=== PATIENT | female | born 1955 | race Caucasian/White ===

== ENCOUNTER 2024-12-17 01:34 | Inpatient (IN) | payer OTHER, SELFPAY ==
[2024-12-16] VITALS (7 sets, daily range): BP systolic 149–166; BP diastolic 100–115; PULSE 2–130; BMI 21.5
--- NOTE | 2024-12-16 21:06 | ED.GENMED ---
History of Present Illness
General
Chief Complaint: Breathing Problem
Time Seen by Provider: 12/16/24 21:03
History of Present Illness
History of Present Illness:
TIME OF INITIAL ENCOUNTER: 9 PM
HPI: I spoke to EMS for history. She arrived on BiPAP in moderate respiratory distress. She reportedly ran out of her blood pressure medication. EMS noted rales and rhonchi and placed her on BiPAP. Her sats were 70% prior to their arrival. She
was given Solu-Medrol 125 mg IV and DuoNebs by EMS with overall some improvement. She does have some vague discomfort described as pressure in the lower/upper abdomen but 'no pain'.
EXAM:
GENERAL: Ill-appearing
HEENT: Moist oral mucosa
CARDIOVASCULAR: No murmurs, normal heart rate, regular rhythm, No chest wall tenderness
PULMONARY: Moderate respiratory distress, breath sounds are fairly clear other than some questionable wheeze/rales more so on the right
ABDOMEN: Soft with no peritoneal signs, no tenderness
NEUROLOGIC: Fair strength all extremities, no coordination deficits
PSYCHIATRIC: Appropriate mental status, normal insight and judgement
EXTREMITIES: Nontender, 1+ bilateral lower extremity edema, moves all extremities equally
SKIN: No rash, no lesions
NUMBER AND COMPLEXITY OF PROBLEMS ADDRESSED AT THE ENCOUNTER
� Chronic conditions affecting care: Ovarian cancer and was admitted with a DVT in 2011
� Acute Exacerbation and/or Progression of Chronic Illness: This is an acute problem
� Differential Diagnosis includes: Heart failure, pulmonary edema, pneumonia, reactive airway disease, bronchitis, COPD, PE
AMOUNT AND/OR COMPLEXITY OF DATA TO BE REVIEWED AND ANALYZED
� I performed an independent evaluation of and my interpretation is:
EKG: Sinus 130, ST elevation in V3 which is new in comparison to 05/11/2012
CT:
X-rays: Chest x-ray suggest pulmonary edema
Laboratory Studies: White count 18.3, hemoglobin 14.0, troponin 0.118, BNP 11,600, sodium 131
Other:
� Review of other/old records: The patient was last here in 2011 related to her ovarian cancer treatment
� Clinical information was obtained by an independent historian: I spoke to boyfriend
� Prescriptions/Medications Considered but not given:
� Further testing considered but not performed: Considered CTA initially however this was held once her symptoms appear to be more cardiac in etiology. Troponin and BNP elevated. Chest x-ray shows pulmonary edema
RISK OF COMPLICATIONS AND/OR MORBIDITY OR MORTALITY OF PATIENT MANAGEMENT
� Social determinants of health affecting care: Lives at home
� Discussion with other providers: Given the abnormality seen on EKG, I notified Dr. Luis. He came in and evaluated the patient at bedside.
� Escalation of care including admission/observation vs risk of discharge considered: Dr. Luis performed a bedside echo, noted poor wall motion and wants to emergently take patient to the [facility]. I ordered heparin and
aspirin. Dr. Luis recommends to hold off on giving Plavix.
ANY OTHER UPDATES:
The patient was continued on BiPAP, nitroglycerin given, Lasix given for pulmonary edema. I evaluated the patient multiple times throughout her stay in the Emergency Department. Overall she has improved on BiPAP. As of 10:37 PM, awaiting
respiratory/transport to the [facility]. Overall she is improved with treatment given.
Past History
Past History
ED Past Medical History: None
Social History
Alcohol: Other (Drinking about 4 months ago)
Personal: Partner
Employment: Employed
Family History
Family History: CAD
Phy Exam
Physical Exam
Physical Exam:
See HPI
Scores
Heart Failure Risk
Heart Failure Risk Score: Not Applicable
Course
Orders/Labs/Results
Orders:
Orders
12/16/24 21:02
Electrocardiogram (*1) Urgent
Reason for Study: Other
Other Reason for Exam: Respiratory Distress
Cardiac Monitoring- Treatment ONCE
EKG- Treatment ONCE
IV Insert/Care/Rem.- Treatment PRN
O2 Therapy [RESP] Urgent
Titrate/Wean O2 to maintain O2 sat greater than (%): 93
Special Instructions: TO MAINTAIN CONTINUOUS O2 SATS >/= 93%
Pulse Ox/cont/shift [RESP] Urgent
Quantity: 1
Special Instructions: continuous pulse ox
12/16/24 21:03
Chest X-ray Portable [CR Chest Portable - 1 View] Stat
Comment:
Reason For Exam: unstable
Reason Study Needs to be Portable: Unable to Transport
12/16/24 21:10
Complete Blood Count/With Diff Urgent
Comprehensive Metabolic Panel Urgent
NT-proBNP Urgent
Troponin I Urgent
12/16/24 21:19
Furosemide [Lasix] 40 mg IV NOW STA
Nitroglycerin Ointment [Nitro-Bid] 1 inch TOPICAL NOW STA
12/16/24 21:57
COVID-19 Antigen Urgent
Source: Nasal Swab
Influenza A+B Rapid Molecular Urgent
MONCHO Source: Nasal Swab
Specimen Description:
12/16/24 22:01
Lorazepam [Ativan] 2 mg .ROUTE .STK-MED ONE
12/16/24 22:04
Lorazepam [Ativan] 0.5 mg IV NOW STA
12/16/24 22:23
Aspirin 325 mg PO NOW STA
Heparin 4,200 units IV NOW STA
Pharmacy Request to Place See Dose Instructions PO NOW STA
Discontinue all Active Warfarin orders?: Yes
12/16/24 22:24
PTT Urgent
Comment: Obtain baseline before beginning heparin infusion if not already collected
Nursing to Place Non Medication Order As Directed
Physician Order: PTT 6 hours after initial start of Heparin infusion
12/16/24 22:30
Heparin 10782 Units/250 ml 25,000 units in 250 ml IV PER PROTOCOL
Weight to be used for heparin protocol in kilograms (kg):: 60.4
Protocol:: Cardiac Tx/Acute Coronary
PTT Goal Range to be used:: PTT 73 to 111 seconds
Order type:: Initial
INITIAL Infusion Dose (UNITS/KG/hr) & then follow protocol:: 15 units/kg/hr
Infusion Dose in UNITS/hr & then follow protocol (UNITS/hr):: 900
INFUSION RATE in mL/hr & then follow protocol (mL/hr):: 9
PTT less than or equal to 64 seconds:: Increase rate by 200 units/hr (+ 2 mL/hr)
PTT 64.1 to 72.9 seconds:: Increase rate by 100 units/hr (+ 1 mL/hr)
PTT 73 to 111 seconds:: Target Range. No change in rate.
PTT 111.1 to 130.9 seconds:: Decrease rate by 100 units/hr (- 1 mL/hr)
PTT 131 to 199.9 seconds:: HOLD for 1 hr. Then decrease rate by 200 units/hr (- 2 mL/hr)
PTT greater than or equal to 200 seconds:: HOLD for 2 hrs & Notify Provider. Then decrease by 200 units/hr (-
2 mL/hr)
Lab follow-up:: Each change, PTT q6h until 2 consecutive are therapeutic. Then PTT
daily.
12/16/24 22:44
Fentanyl Citrate/Pf [Sublimaze] 100 mcg .ROUTE .STK-MED ONE
Midazolam HCl [Versed] 2 mg .ROUTE .STK-MED ONE
12/16/24 22:45
Heparin 10,000 units .ROUTE .STK-MED ONE
12/16/24 23:[address] See Dose Instructions IV DIRECTED
Abnormal Lab Results
12/16/24
21:10
WBC 18.3 H 10^3/uL
(4.8-10.8)
MCH 32.4 H pg
(27.0-31.0)
Abs Immat Gran (auto) 0.1 H 10^3/uL
(0-0.05)
Absolute Neuts (auto) 15.1 H 10^3/uL
(1.4-6.5)
Absolute Monos (auto) 0.7 H 10^3/uL
(0.1-0.6)
Neutrophils % 82.8 H %
(42.2-75.2)
Lymphocytes % 12.2 L %
(20.5-51.1)
Sodium 131 L mmol/L
(135-145)
Carbon Dioxide 16 L mmol/L
(22-30)
Glucose 233 H mg/dl
(70-99)
Troponin I 0.118 H* ng/ml
12/16/24 21:10
12/16/24 21:10
Vital Signs
Initial and Last Documented VS:
Initial Vital Signs
Pulse Ox
88
12/16/24 21:03
Last Documented Vital Signs
Temp Pulse Resp BP Pulse Ox
36.6 C 130 26 155/103 98
12/16/24 21:05 12/16/24 21:41 12/16/24 21:41 12/16/24 21:41 12/16/24 21:41
*Critical Care Note
Total Time (30-74mins, 75-104mins- exclusive of procedures): 60min
comment:
Patient is hypoxic requiring BiPAP. Abnormal EKG, troponin, BNP and she was emergently diuresed. Nitroglycerin paste was also given to help preload reduction.
ED Attending Note
-
Portions of this chart may have been created with voice recognition software.� Occasional wrong word or��sound alike� substitutions may have occurred due to the inherent limitations of voice recognition software.
Discharge Plan
Departure
Patient Disposition: Admit
Date of Disposition: 12/16/24
Time of Disposition: 22:13
Presentation/result/management discussed w/ accepting MD/DO: dr donohue
Discharge Problem:
ACS (acute coronary syndrome)
Prescriptions:
No Action
metoprolol succinate 25 MG tablet extended release 24 hr
25 mg PO DAILY
enoxaparin 60 MG/0.6 ML syringe
60 mg SC Q12H
oxycodone-acetaminophen [Percocet] 1 EACH tablet
1 ea PO Q4HPRN PRN (Reason: Neulasta bone pain)
Interventions
Interventions:
*Risk Screen - Suicide Last Done: 12/16/24 21:20
*General Assessment Last Done: 12/16/24 21:21
*Neglect/Abuse Screening Last Done: 12/16/24 21:20
*ED COVID-19 Vaccine History Last Done: 12/16/24 21:20
ED- Cardiac Assessment Last Done: 12/16/24 21:42
ED- Pulmonary Assessment Last Done: 12/16/24 21:42
Discharge Date and Time
Print Language: TURKISH
[2024-12-16 21:24] LABS: % Basophils 0.3 % (0-2); % Eosinophils 0.3 % (0-6); % Immature Granulocytes 0.4 % (0-0.5); % Lymphocytes 12.2 % (20.5-51.1); % Neutrophils 82.8 % (42.2-75.2); Absolute Basophils 0.1 10^3/uL (0-0.2); Absolute Eosinophils 0.1 10^3/uL (0-0.7); Absolute Immature Granulocytes 0.1 10^3/uL (0-0.05); Absolute Lymphocytes 2.2 10^3/uL (1.2-3.4); Absolute Monocytes 0.7 10^3/uL (0.1-0.6); Absolute Neutrophils 15.1 10^3/uL (1.4-6.5); Hematocrit 41.5 % (37.0-47.0); Mean Corp Hgb Conc. 33.7 g/dL (33.0-37.0); Mean Corpuscular Hgb 32.4 pg (27.0-31.0); Mean Corpuscular Volume 96.1 fL (81.0-99.0); Mean Platelet Volume 9.6 fL (7.4-10.4); Nucleated Red Blood Cells % 0 %; Platelet Count 331 10^3/uL (130-400); Red Blood Cell Count 4.32 10^6/uL (4.20-5.40); Red Cell Dist. Width 13.4 % (11.5-14.5); White Blood Cell Count 18.3 10^3/uL (4.8-10.8)
[2024-12-16] MEDS: NITRO-BID 1 INCH TOPICAL (21:35)
[2024-12-16] MEDS: LASIX 40 MG IV (21:35)
[2024-12-16 21:50] LABS: ALT (SGPT) 17 U/L (0-35); AST (SGOT) 33 U/L (14-36); Albumin 4.5 g/dl (3.5-5.0); Alkaline Phosphatase 102 U/L (38-126); Blood Urea Nitrogen 8 mg/dl (7-17); Calcium 9.3 mg/dl (8.4-10.2); Carbon Dioxide 16 mmol/L (22-30); Chloride 98 mmol/L (98-107); Estimated Creatinine Clearance 55 ml/min; Glucose 233 mg/dl (70-99); Potassium 3.6 mmol/L (3.5-5.1); Sodium 131 mmol/L (135-145); Total Bilirubin 0.8 mg/dl (0.2-1.3); Total Protein 6.6 g/dl (6.3-8.2); eGFR > 60.00
[2024-12-16 21:51] LABS: NT-proBNP 11600 pg/ml; Troponin I 0.118 ng/ml
[2024-12-16] MEDS: ATIVAN 0.5 MG IV (22:05)
[2024-12-16 22:30] LABS: COVID-19 Antigen Negative (Negative)
--- NOTE | 2024-12-16 22:31 | HPS.HSE ---
Family Physician
-
Family Physician: NOT KNOW UNKNOWN - PT DOES
Chief Complaint
-
Shortness in breath.
History of Present Illness
69 y/o female with HTN and remote history of ovarian CA in remission complicated by DVT/PE presenting with abrupt onset shortness in breath and hypoxic respiratory failure.
The patient was in her normal state of health until she had to move her bowels earlier today. After forcing the bowel movement, she describes a sub-xyphiod sensation that she does not qualify as pain. She became progressively short of breath and
presented to [facility] Emergency Room.
On presentation, she was hypertensive. Initial EKG shows isolated SARAN in V3 with Q waves through the anteroseptum. The EKG has a poor baseline, so true SARAN in leads other than V3 are difficult to distinguish. She was dyspneic and hypoxic. She
was placed on BiPAP, given diuretics and a nitro patch was placed. With these interventions, her BP is better controlled and her breathing is more comfortable, though she remains on BiPAP.
CXR shows some pulmonary edema.
WBC is 18.3K.
Troponin is 0.118.
CO2 is 16 (AG = 17).
Glucose 233.
COVID/Influenza negative.
Bedside echo (ER US machine with cardiac probe) shows anteroseptal hypokinesis with a hyperkinetic inferior base and severely depressed systolic function. LVEF estimated at 20-25%.
Medical History
Past Medical History
Past Medical History: Reports Cancer (Ovarian), HTN and Other (DVT/PE (secondary to ovarian CA).)
Past Surgical History: Reports None
Social History
Tobacco: Non-smoker
Alcohol: Daily
Drug: None
Personal: Partner
Living: With Family
Employment: Employed
Family History
Family History: Not pertinent
Allergies / Home Medications
Allergies reflects when Allergies were last updated in Takes.
Home Medications with original date entered in Takes
Allergy/Medication List:
Home Medication:
Blood pressure medicine NOS.
Allergies:
PCN
Paclitaxel
Review of Systems
-
History Source: Patient, Family and Physician
Constitutional: Reports Chills
EENT: Reports No Symptoms
Respiratory: Reports Trouble Breathing
Cardiac: Reports No Symptoms and See HPI
Abdomen/GI: Reports No Symptoms and See HPI
Musculoskeletal: Reports No Symptoms
Skin: Reports No Symptoms
Neurological: Reports No Symptoms
Physical Exam
Vital Signs
Vital Signs
Temp Pulse Resp BP Pulse Ox
36.6 C 130 26 155/103 98
12/16/24 21:05 12/16/24 21:41 12/16/24 21:41 12/16/24 21:41 12/16/24 21:41
Physical Exam
General: Well Developed, Well Nourished, Respiratory Distress and Other (On BiPAP.)
HEENT: NormoCephalic, Anicteric, Moist mucous membranes, Atraumatic, Good Dentition (Missing several teeth.), PERRLA, [place] Conjunctivae, No Ptosis, Nose Appears Normal and Ears Appear Normal
Respiratory: Rales and Accessory Resp Muscle Use
Cardiac: S1/S2 and Regular Rhythm
Breast: Deferred by me
GI: Soft, Non Tender, Non Distended and Normal Bowel Sounds
Rectal: Deferred by Provider
Genito-urinary: Deferred by me
Musculoskeletal: No Clubbing, No Cyanosis and No Edema
Skin: Warm and Dry
Neuro: AO x 3, No Motor Deficits, Nonfocal/grossly intact and Cranial Nerves Intact
Hematologic/Lymphatic: No Lymphadenopathy
Psych: Intact Judgment/Insight and Anxious
Laboratory Results
-
12/16/24 21:10
12/16/24 21:10
Laboratory Results
Total Bilirubin 0.8 mg/dl (0.2-1.3) 12/16/24 21:10
AST 33 U/L (14-36) 12/16/24 21:10
ALT 17 U/L (0-35) 12/16/24 21:10
Alkaline Phosphatase 102 U/L (38-126) 12/16/24 21:10
Troponin I 0.118 ng/ml H* 12/16/24 21:10
Data Reviewed
-
Diagnostic Radiology: Image Personally Visualized and interpreted and Report Reviewed by me
Ultrasound: Image Personally Visualized and interpreted
Medical Tests (Nuc Med, Echo, EKG etc): Image Personally Visualized and interpreted and Report Reviewed by me
Lab Data: Labs Reviewed by me
Old Records: Reviewed
Impression/Plan
-
Impression/Plan: 69 y/o female with a history of HTN, remote ovarian CA in remission that was complicated by DVT/PE presenting with acute hypoxic respiratory failure, new cardiomyopathy/acute HFrEF and EKG change concerning for acute coronary
syndrome and anion gapped metabolic acidosis.
#ACS
-Acute.
-EKG without definitive SARAN beyond V3 and Q waves in the anteroseptum. DDx includes true STEMI vs. delayed presentation vs. Takotsubo vs. myocarditis.
-Urgent cardiac catheterization to clarify coronary anatomy, assess filling pressures.
-Risks/benefits discussed.
-Consent is signed and on the chart.
-ASA/Heparin have been given. [id number] held prior to evaluation of anatomy.
#Hypoxic respiratory failure/HFrEF
-Acute, new diagnosis.
-Furosemide 40 mg IV given in ER.
-Place griffiths catheter.
-We will assess LVEDP at the time of catheterization.
-DDx will also include abrupt mechanical complication (VSD/MR, etc).
-She may need a bumetanide gtt.
#Anion Gapped Metabolic Acidosis
-Acute.
-AG = 17, Delta/Delta around 1.
-Check lactate, beta-hydroxybutyrate (in light of glucose > 200).
-Check EtOH levels, urine drug screen.
#PPx
-Heparin given for possible ACS. We will address after her cardiac catheterization.
-No role for PPI at this time.
#Dispo
-Full code.
-Transfer to [facility] when staff have arrived.
-Post-cath disposition TBD, likely ICU given non-invasive mechanical ventillation.
[2024-12-16] MEDS: HEPARIN 4200 UNITS IV (22:35)
[2024-12-16] MEDS: ASPIRIN 325 MG PO (22:36)
[2024-12-16 23:39] LABS: Alcohol 51 mg/dl
[2024-12-16 23:46] LABS: B-Hydroxybutyrate 0.23 mmol/L (0.02-0.27)
[2024-12-17] VITALS (20 sets, daily range): BP systolic 99–139; BP diastolic 66–104; BMI 20.1
[2024-12-17 00:11] LABS: ACT-LR - POC 335 Seconds (116-155)
[2024-12-17 01:09] LABS: ACT-LR - POC 329 Seconds (116-155)
--- NOTE | 2024-12-17 01:24 | ITS.CL.ANGIO ---
Explosive Ordnance Disposal Manager - Angioplasty
Angioplasty
Procedure Report:
CARDIAC CATHETERIZATION REPORT
Date of Procedure: 12/16/2024
Referring: [facility] emergency room.
INDICATION: Flash pulmonary edema with anteroseptal EKG changes, concerning for STEMI equivalent.
PROCEDURE:
1. Left heart catheterization.
2. Coronary angiography.
3. Successful PCI of the proximal and mid LAD.
4. Successful post hoc intracoronary lithotripsy.
5. IVUS.
A total of 113 minutes of procedural/moderate sedation was utilized. An independent medical data entry clerk was present to assist with and help manage the patient's level of consciousness and physiologic status.
ACCESS:
1. 6 [place] right rate artery using a modified Seldinger technique.
CATHETERS:
1. 5 Liberian JR4.
2. 5 Liberian JL 3.5.
3. 6 [place]ian EBU 3.5 guiding catheter.
HEMODYNAMIC DATA
Weight (kg): 60.4
AO (s/d/x, mmHg): 118/74/93
LV (s/x mmHg): 123/29
LEFT VENTRICULOGRAPHY: Not performed.
CORONARY ANGIOGRAPHY
Dominance: Right.
Left Main: Relatively short, bifurcating vessel. There is distal calcification but no intraluminal stenosis.
LAD: Large size vessel giving rise to 1 significant diagonal as well as a large master septal arcade, making it difficult to distinguish between the septal and the true LAD. There is a culprit, densely calcified 95% lesion in the ostial/proximal
LAD with CARLA II flow in the distal vessel. There is a densely calcified 90% lesion in the proximal/mid LAD at the origin of the large septal arcade. There is a long, densely calcified 70% lesion in the mid LAD.
Ramus: Congenitally absent.
Circumflex: Large size, nondominant vessel giving rise to a single large obtuse marginal which subsequently bifurcates into 2 severely tortuous daughter branches. There is a densely calcified 60% lesion in the proximal circumflex.
RCA: Relatively small, nondominant vessel with a long, 75% lesion in the mid vessel.
INTERVENTION(S)
1. Successful PCI of the 90% proximal/mid LAD and 70% mid LAD lesions (Medtronic Tennga Melbeta 2.5 x 38 DENISE, postdilated with a 2.5 NC balloon).
2. Successful PCI of the culprit, 95% ostial/proximal LAD lesion (Medtronic Tennga Melbeta 3.0 x 22 DENISE, postdilated with a 3.0 NC balloon), restoring CARLA-3 flow.
3. Successful IVUS of the LAD, revealing multiple areas of dense calcification with stent underexpansion.
4. Successful intracoronary lithotripsy of the underexpanded stent segments (Shockwave 2.5 x 12 lithotripsy balloon).
5. Aggressive secondary dilation of the entire stented segment with a 3.0 x 12 NC balloon to high pressure, with reduction in the proximal and mid LAD stenoses to 0%, maintaining CARLA-3 flow.
6. Aggressive tertiary dilation of a resistant, densely calcified lesion at the origin of the first diagonal (Medtronic Euphora 3.25 x 12 NC balloon to 20 atng) with reduction in the proximal/mid LAD stenosis to 20%.
Narrative:
The decision was made to proceed with percutaneous coronary intervention. The diagnostic catheter was removed over a wire and a 6Fr EBU 3.5 guiding catheter was advanced to the aortic root and seated in the left main coronary artery. Additional
heparin was given and a Power Turn Flex wire was advanced into the proximal LAD. The wire had difficulty traversing the mid LAD. Furthermore, angiography was somewhat confusing as the large septal arcade imitated the true LAD with slight lateral
deviation of the LAD making it appear as a large diagonal. A whisper wire was used to cross the actual LAD lesions using a mini microcatheter. A power turn flex wire was advanced into the septal arcade, subsequently into a lateral branch using a
super cross microcatheter. We used the super cross microcatheter to selectively inject the artery, subsequently revealing that this was a septal groundsman and not the true LAD. Initially, the wire was maintained in this position to provide
relative anatomic position.
The 2.0 x 12 semicompliant balloon was advanced into the proximal/mid LAD with relative ease, but would not enter the true mid LAD. The 90% proximal/mid LAD lesion and the 95% ostial/proximal lesion were predilated with a 2.0 x 12 semi-compliant
balloon to 12 tang. The 2.0 x 12 semicompliant balloon was withdrawn and a 1.5 x 12 semicompliant balloon was advanced. We took this opportunity to remove the power turn flex wire from the septal groundsman and advance the 1.5 semicompliant balloon
with a 6 Liberian guide liner. With some difficulty, we were able to pass their 1.5 x 12 semicompliant balloon into the mid LAD. The mid LAD was dilated to 12 tang. The proximal/mid LAD lesion was dilated to 12 tang, but ruptured the balloon. In
spite of this rupture, it became much easier to traverse the entire LAD with semicompliant balloons. The 1.5 x 12 semicompliant balloon was withdrawn and a 2.5 x 20 semicompliant balloon was advanced. The mid LAD lesion was predilated to 12 tang.
The proximal/mid LAD lesion was predilated to 12 tang, again rupturing the balloon. The 2.5 x 20 semicompliant balloon was withdrawn and a 2.5 x 12 noncompliant balloon was advanced. The entire mid, proximal and ostial LAD was predilated to 12 tang.
Angiography showed some reduction in vessel size concerning for relative vessel spasm. Nitroglycerin 100 mcg was given intracoronary with significant improvement in vessel diameter. The noncompliant balloon was removed and a Medtronic Tennga
Melbeta 2.5 x 38 drug-eluting stent was advanced into the mid LAD. Meticulous care was taken to ensure that the entire 70% mid LAD and 90% proximal/mid LAD lesions were covered by this stent. The stent was deployed at 12 atmospheres. The stent
balloon was removed.
We then turned our attention to the ostial/proximal lesion. Angiography confirmed that the lesion extended back to the true ostium of the LAD. A Medtronic Braden Melbeta 3.0 x 22 DENISE was advanced into the proximal LAD. Meticulous care was taken
while positioning the stent, ensuring that the distal margin of the stent overlapped with the proximal margin of the previous stent and that the stent cover the entire ostial/proximal lesion without protruding into the left main coronary artery. We
were satisfied with our position, the stent was deployed to 12 tang. The stent balloon was removed.
A 2.5 x 12 noncompliant balloon was advanced into the stent and the stent was postdilated to 12 atmospheres in the distal margin, 16 tang in the midportion and 18 tang in the proximal portion/stent overlap. The noncompliant balloon was removed.
The decision was made to perform intracoronary imaging. An IVUS catheter was advanced through the guiding catheter and into the ostium of the artery. Ring down was performed once the imaging crystal was no longer inside of the guiding catheter. The
IVUS catheter was advanced into the proximal LAD, but would not advance beyond the stent overlap.
The IVUS catheter was withdrawn and the 3.0 x 12 NC balloon was readvanced. The mid LAD stent and stent overlap was postdilated to 16 tang. The more proximal stent overlap and proximal LAD stent was postdilated to 18 tang. The 6 [place]ian guide liner
was advanced over this balloon and into the mid LAD stent. This allowed for readvancement of the IVUS catheter, beyond the stented segment. The GuideLiner was then pulled back to allow for full IVUS assessment. IVUS was performed in a retrograde
fashion using a slow pullback. Intracoronary imaging demonstrated good stent apposition throughout the entire stented segment. There were 2 areas of stent underexpansion, 1 in the 70% mid LAD lesion and the other around the proximal/mid LAD 90%
lesion.
The IVUS catheter was removed. Given the severity of the local calcification, the decision was made to proceed with ad hoc plaque modification. A Shockwave 2.5 x 12 coronary lithotripsy balloon was advanced over the wire and into the mid LAD
lesion. The balloon was sterilely connected to the controller and prepped to negative pressure. Meticulous care was taken while positioning the shockwave balloon. Once in satisfactory position, the balloon was inflated to 4 tang. After confirming
good contact with the vessel wall, 10 pulses were delivered. After delivering 10 pulses, the balloon was inflated to 6 tang then deflated. The entire lesion was treated in a similar manner for total of 6 rounds. The balloon was then pulled back to
the proximal/mid LAD lesion. The procedure was then repeated for an additional 6 rounds. The Shockwave balloon was withdrawn. The 3.0 x 12 noncompliant balloon was reinserted. The mid LAD lesion was postdilated to 12 tang in its distal margin, 16
tang in its mid margin and 18 tang and the stent overlap.
The noncompliant balloon was removed and IVUS was repeated. Intravascular ultrasound was performed in a retrograde fashion using a slow pullback. Intracoronary imaging demonstrated improved stent expansion in the mid LAD with improved expansion in
the proximal/mid LAD but is still a significant amount of calcium deformation. Recognizing that there would be limited amount of plaque modification that could be accomplished, the decision was made to treat this lesion with a 3.25 x 12
noncompliant balloon. The balloon was inserted and the lesion was postdilated to 20 tang. The noncompliant balloon was removed as this was the most aggressive we were prepared to post dilate this lesion.
Angiography was performed in orthogonal views, confirming good stent expansion and an overall excellent angiographic result. The ostial/proximal and mid LAD stenoses had been reduced to 0% and CARLA-3 flow had been restored. The proximal/mid LAD
stenosis had been reduced from 90% to 20% with a large calcium deposit plainly visible around the area in question. At this time, we felt that no further intervention would be of assistance. The coronary wire was withdrawn and the guide was
disengaged from the artery. The catheter was removed over a standard J-wire.
Closure Device: Vascular band.
Radiation (mGy): 1901.25
DAP (cm2.Gy): 122.03
Fluoroscopy time (minutes): 42.3
CONCLUSIONS
1. Right dominant circulation with a 75% lesion in the midportion of the small RCA, a densely calcified, 60% lesion in the proximal circumflex, a densely calcified, long, 70% lesion in the mid LAD, a densely calcified 90% lesion in the proximal/mid
LAD around the origin of the master septal arcade and a culprit, 95% lesion in the ostial/proximal LAD, status post successful IVUS guided intracoronary lithotripsy and PCI of the ostial/proximal/mid LAD lesions, with reduction in the
ostial/proximal and mid LAD lesions to 0% and the proximal/mid LAD lesion to 20%, restoring CARLA-3 flow.
2. Severely elevated filling pressures (LVEDP = 29 mmHg at 60.4 kg).
RECOMMENDATIONS:
1. Expectant management after cardiac catheterization via right rate approach.
2. Limited weight bearing on the right for one week.
3. Dual antiplatelet therapy with aspirin and ticagrelor for at least 12 months, followed by aspirin indefinitely.
4. Aggressive secondary prevention with high-dose, high potency statin. Goal LDL <55.
5. OMT/GDMT as hemodynamics will tolerate.
6. Official echocardiogram ordered and pending.
7. Plan for repeat cardiac catheterization and IFR of the underexpanded proximal/mid LAD lesion and the 60% proximal circumflex lesion. The patient may require deferred CABG.
8. Referral to cardiac rehab.
Copy to: Wen Evans M.D.
Jermaine Corona DO, FACC, FACP
[2024-12-17 01:58] LABS: Hematocrit 40.4 % (37.0-47.0); Hemoglobin 13.8 g/dL (12.0-16.0); Mean Corp Hgb Conc. 34.2 g/dL (33.0-37.0); Mean Corpuscular Hgb 31.9 pg (27.0-31.0); Mean Corpuscular Volume 93.5 fL (81.0-99.0); Mean Platelet Volume 9.9 fL (7.4-10.4); Platelet Count 272 10^3/uL (130-400); Red Blood Cell Count 4.32 10^6/uL (4.20-5.40); Red Cell Dist. Width 13.3 % (11.5-14.5); White Blood Cell Count 16.2 10^3/uL (4.8-10.8)
[2024-12-17 02:08] LABS: Lactic Acid 2.9 mmol/L (0.7-2.0)
[2024-12-17 02:20] LABS: APTT > 200.0 Sec (23.4-35.0)
[2024-12-17 02:27] LABS: Blood Urea Nitrogen 10 mg/dl (7-17); Calcium 9.2 mg/dl (8.4-10.2); Carbon Dioxide 16 mmol/L (22-30); Chloride 97 mmol/L (98-107); Estimated Creatinine Clearance 62 ml/min; Glucose 179 mg/dl (70-99); Potassium 3.2 mmol/L (3.5-5.1); Sodium 131 mmol/L (135-145); eGFR > 60.00
--- NOTE | 2024-12-17 04:00 | PTCARENOTE ---
Pt received as admission from laboratory courier post STEMI. SR/ST on tele. No complaints of CP, pt reports SOB some SOB and a cough, POX 98% on 6L NC. R radial TR band in place, radial pulse palpable. Post cath IV fluids infusing per order. EKG obtained
and labs sent. Admission assessment completed and pt oriented to room. pt offers no complaints at this time. Can make needs known. Call warren within reach.
[2024-12-17] MEDS: KCL 40 MEQ PO ×3 (05:00→19:34)
[2024-12-17 05:14] LABS: Magnesium 1.7 mg/dl (1.6-2.3)
[2024-12-17 06:22] LABS: ACT-LR - POC > 397 Seconds (116-155)
--- NOTE | 2024-12-17 06:58 | W.PN.CD ---
Today's Communication / Plan
-
Trend troponin.
Echocardiogram pending.
Remove nitro paste.
Daily weights.
Continue furosemide 40 mg IV daily.
KCl 40 mEq BID. Check Mg.
Dapagliflozin 10 mg daily.
Metoprolol succinate 25 mg daily.
Serum/Urine Na, osmolality.
Check TSH, cortisol.
Impression / Plan
-
Impression/Plan: 69 y/o female with HTN, remote ovarian CA complicated by DVT/PE admitted with flash pulmonary edema and acute coronary syndrome/STEMI equivalent.
#STEMI/CAD
-Acute.
-Troponin up to 1.2.
-S/P successful IVUS guided IVL and PCI of the proximal, proximal/mid and midLAD (overlapping Medtronic Gepp 2.5 x 38 DENISE, 3.0 x 22 DENISE, post hoc Shockwave 2.5 x 12 IVL balloon, post dilated with a 2.5 NC balloon throughout, a 3.0 NC balloon in
the proximal and prox/mid segments to high pressure) with reduction in prox and mid stenosis to 0%, and reduction in prox/mid stenosis to 20%.
-DAPT with ASA and ticagrelor for at least 12 months, followed by aspirin indefinitely.
-Secondary prevention with high dose, high potency statin.
-OMT.
-Re-cath with iFR of the 60% LCx and staged revascularization of the 75% RCA (CVLPRIT) prior to discharge.
#ICMO/HFrEF/Flash Pulmonary Edema
-New diagnosis, acute.
-Initially required BIPAP, now on nasal canula.
-Bedside echo (ER US machine) showed LAD territory hypokinesis/akinesis with moderate to severely depressed systolic function (LVEF = 30-35%).
-Formal echocardiogram pending.
-SaO2 = 97% on 6LNC.
-Daily weights.
-Remove nitro paste.
-Furosemide 40 mg IV daily.
-GDMT as hemodynamics will tolerate. Cautious introduction of beta blockers.
-Start dapagliflozin 10 mg daily.
#Anion Gapped Metabolic Acidosis
-Acute.
-AG = 17, Delta/Delta around 1.
-Lactate = 2.9.
-Beta-hydroxy butyrate = 0.23 (normal).
-EtOH = 51.
#FEN
-Hyponatremia (131) and hypokalemia.
-KCl 40 mEq BID.
-I suspect hyponatremia is due to excess volume, though SIADH from pulmonary disease is possible.
-Check serum/urine Osms, Na, TSH, cortisol.
-Monitor Na with diuresis.
#PPx
-SCD's, enoxaparin for DVT/VTE.
-No role for PPI at this time.
#Dispo
-Full code.
-IVU status.
Subjective/Interval History:
Admitted with flash pulmonary edema requiring BiPAP.
She was given nitro paste and diuretics.
EKG was not definitive but she was having ACS ---> STEMI equivalent.
Cardiac catheterization significant, multivessel disease. Successful PCI of the ostial/proximal/mid LAD with residual mRCA and pLCx disease.
She feels much better this morning.
DATA:
Cardiac Catheterization/PCI, 12/17/2024:
CONCLUSIONS
1. Right dominant circulation with a 75% lesion in the midportion of the small RCA, a densely calcified, 60% lesion in the proximal circumflex, a densely calcified, long, 70% lesion in the mid LAD, a densely calcified 90% lesion in the proximal/mid
LAD around the origin of the master septal arcade and a culprit, 95% lesion in the ostial/proximal LAD, status post successful IVUS guided intracoronary lithotripsy and PCI of the ostial/proximal/mid LAD lesions, with reduction in the
ostial/proximal and mid LAD lesions to 0% and the proximal/mid LAD lesion to 20%, restoring CARLA-3 flow.
2. Severely elevated filling pressures (LVEDP = 29 mmHg at 60.4 kg).
Physical Exam
Vital Signs/Labs
Vital Signs
Temp Pulse Resp BP Pulse Ox
36.6 C 107 18 128/88 97
12/17/24 01:30 12/17/24 03:30 12/17/24 01:30 12/17/24 03:30 12/17/24 03:35
12/15/24 12/16/24 12/17/24
11:59 11:59 11:59
Actual Weight 60.4 kg
12/17/24 01:46
12/17/24 01:46
APTT > 200.0 Sec (23.4-35.0) H* 12/17/24 01:46
Magnesium 1.7 mg/dl (1.6-2.3) 12/17/24 01:46
12/16/24
21:10
[id number] Pept 71570
LAB Results
12/16/24 12/17/24
21:10 01:46
Troponin I 0.118 H* 1.210 H* D
Physical Exam
Constitutional: No acute distress and Comfortable
EENT: Anicteric and Moist mucous membranes
Cardiovascular: Rhythm & rate is regular, Pedal edema is absent, JVD pressure is normal, S1S2 is normal and Murmur/rub/gallop absent
Respiratory: Respiratory effort normal, Wheeze Absent, Rhonchi Absent and Crackles Present (Bilateral bases.)
GI: Soft, Distention absent, Flat, Non tender and Normal bowel sounds
Neuro/Psych: AO x 3
Other: Cath Site (Right radial access site is C/D/I.)
Data Reviewed
-
Date of Service: December 17, 2024
Medical Decision Making: Reviewed Test Results, Tests Ordered, Independent Historian Assessment and Test Interpretation
EKG: Tracing Personally Visualized and interpreted and Report Reviewed by me
Echo: Ordered by me
X-Ray/CT/US/MRI/NUC/PET: Image Personally Visualized and interpreted and Report Reviewed by me
Medical Tests (PFT, Pathology etc): Image Personally Visualized and interpreted, Report Reviewed by me, Discussed with Patient and Discussed with Family
Labs: Labs Reviewed by me and Labs Ordered by me
Old Records: Reviewed
[2024-12-17] MEDS: TOPROL XL 25 MG PO (07:54)
[2024-12-17] MEDS: LOW STRENGTH ASPIRIN 81 MG PO (07:54)
[2024-12-17] MEDS: LASIX 40 MG IV (07:55)
[2024-12-17] MEDS: BRILINTA 90 MG PO ×2 (07:55→19:34)
[2024-12-17] MEDS: FARXIGA 10 MG PO (07:55)
[2024-12-17] MEDS: MAGNESIUM SULFATE 102 GRAMS IV (08:12)
[2024-12-17] MEDS: KCL 20 MEQ PO (08:14)
--- NOTE | 2024-12-17 09:20 | CM ---
Addendum entered by Gely Atkinson RN 12/17/24 11:18:
Pricing on Farxiga is $40 for a 30 day supply and $80 for a 90 day mail order. Patient qualifies for the $0 copay card. Card placed in the patient's red discharge folder. Patient is agreeable to pricing.
Original Note:
Pricing on Brilinta through the patient's [facility] is $60 for a 30 day supply and $120 for a 90 day retail supply. It is in stock. I will place a $5 copay card in the patient's red discharge folder. It is in stock at the
patient's [facility]
--- NOTE | 2024-12-17 11:20 | CM ---
Chart reviewed. Patient is independent of ADLS, still working, lives with her significant other in a apartment, 2nd floor, full flight of stairs to enter, 0 DME. Plan is for the patient to return home. CM to follow
--- NOTE | 2024-12-17 11:27 | PTCARENOTE ---
Pt w/ 21 second run of slow VT. HR went up to 130s. BP 114/84. Pt asymptomatic and was up sitting in chair. Cj JORDAN made aware.
[2024-12-17 11:58] LABS: Osmolality Serum 275 mOsm/kg (275-300)
[2024-12-17 14:31] LABS: Urine Sodium 97 mmol/L (30-90)
--- NOTE | 2024-12-17 15:22 | CARDSERVLU ---
Echocardiogram with [facility] completed after protocol screening completed. Allergies verified.
Patent IV site: _L a/c____
IV site flushed with 0.9% NaCl pre and post administration.
Diluted bolus method utilized to enhance visualization of ventricular garibay.
Total volume given: ___5_ mL
Patient tolerated all procedures well without complications.
[2024-12-17 17:06] LABS: Cortisol, Random 16.3 ug/dl
[2024-12-17] MEDS: LOVENOX 40 MG SC (17:20)
[2024-12-17] MEDS: LIPITOR 80 MG PO (17:20)
[2024-12-17 18:04] LABS: Osmolality Urine 375 mOsm/kg (300-900)
--- NOTE | 2024-12-17 20:51 | PTCARENOTE ---
assumed care of patient @ 1900. pt recieved lying in bed, AOx3. VSS on 2L o2. NSR on tele. pt resting comfortably with call warren within reach. See flowsheet for detailed assessment and interventions.
[2024-12-17 23:53] LABS: Blood Urea Nitrogen 18 mg/dl (7-17); Calcium 9.1 mg/dl (8.4-10.2); Carbon Dioxide 24 mmol/L (22-30); Chloride 100 mmol/L (98-107); Estimated Creatinine Clearance 65 ml/min; Glucose 105 mg/dl (70-99); Magnesium 2.2 mg/dl (1.6-2.3); Potassium 4.6 mmol/L (3.5-5.1); Sodium 131 mmol/L (135-145); eGFR > 60.00
[2024-12-17 23:56] LABS: Hematocrit 35.3 % (37.0-47.0); Hemoglobin 12.2 g/dL (12.0-16.0); Mean Corp Hgb Conc. 34.6 g/dL (33.0-37.0); Mean Corpuscular Hgb 32.4 pg (27.0-31.0); Mean Corpuscular Volume 93.6 fL (81.0-99.0); Mean Platelet Volume 10.1 fL (7.4-10.4); Platelet Count 276 10^3/uL (130-400); Red Blood Cell Count 3.77 10^6/uL (4.20-5.40); Red Cell Dist. Width 13.8 % (11.5-14.5); White Blood Cell Count 18.1 10^3/uL (4.8-10.8)
[2024-12-18] VITALS (7 sets, daily range): BP systolic 92–108; BP diastolic 56–70
--- NOTE | 2024-12-18 00:24 | PTCARENOTE ---
at 2214, pt with aprox ~ 1 minute of SVT in the 140s. Asymptomatic, was sleeping. BP good. TT TALK SHOW HOST - ordered labs drawn and sent. results communicated to TALK SHOW HOST.
[2024-12-18 05:01] LABS: Hematocrit 35.7 % (37.0-47.0); Hemoglobin 12.2 g/dL (12.0-16.0); Mean Corp Hgb Conc. 34.2 g/dL (33.0-37.0); Mean Corpuscular Hgb 32.3 pg (27.0-31.0); Mean Corpuscular Volume 94.4 fL (81.0-99.0); Mean Platelet Volume 10.4 fL (7.4-10.4); Platelet Count 269 10^3/uL (130-400); Red Blood Cell Count 3.78 10^6/uL (4.20-5.40); Red Cell Dist. Width 13.8 % (11.5-14.5); White Blood Cell Count 15.6 10^3/uL (4.8-10.8)
[2024-12-18 05:30] LABS: Blood Urea Nitrogen 17 mg/dl (7-17); Calcium 9.4 mg/dl (8.4-10.2); Carbon Dioxide 23 mmol/L (22-30); Chloride 102 mmol/L (98-107); Estimated Creatinine Clearance 65 ml/min; Glucose 101 mg/dl (70-99); HDL Cholesterol 61 mg/dl; LDL Cholesterol, Calculated 100 mg/dl; Magnesium 2.2 mg/dl (1.6-2.3); Potassium 4.6 mmol/L (3.5-5.1); Sodium 133 mmol/L (135-145); Total Cholesterol 185 mg/dl (50-199); Triglyceride 121 mg/dl (10-149); Very Low Density Lipoprotein 24 mg/dl (0-30); eGFR > 60.00
--- NOTE | 2024-12-18 06:37 | W.PN.UPDATE ---
Update Note
Progress Note Update
RN addressed episode of SVT, labs drawn, WNL. Patient asymptomatic, Stable VS.
[2024-12-18] MEDS: FARXIGA 10 MG PO (07:51)
[2024-12-18] MEDS: BRILINTA 90 MG PO ×2 (07:51→20:03)
[2024-12-18] MEDS: LOW STRENGTH ASPIRIN 81 MG PO (07:51)
[2024-12-18] MEDS: TOPROL XL 25 MG PO (07:51)
[2024-12-18] MEDS: LASIX 40 MG IV (07:51)
[2024-12-18] MEDS: KCL 40 MEQ PO (07:51)
--- NOTE | 2024-12-18 10:01 | PTCARENOTE ---
D/c griffiths per order. Pt tolerated and voided in bathroom after removal.
--- NOTE | 2024-12-18 10:45 | CM ---
Chart reviewed. Patient is independent of ADLS, lives with her significant other in a 2nd floor apartment, full flight of stairs to enter, 0 DME. Plan is for the patient to return home. CM to follow
--- NOTE | 2024-12-18 15:11 | W.PN.CD ---
Today's Communication / Plan
-
NPO after midnight for re-cath tomorrow.
Continue OMT/GDMT.
Reduce KCl to 40 mEq daily.
Change furosemide to 40 mg PO daily.
Repeat echocardiogram in 3 months to assess for primary prevention ICD.
Impression / Plan
-
Impression/Plan: 69 y/o female with HTN, remote ovarian CA complicated by DVT/PE admitted with flash pulmonary edema and acute coronary syndrome/STEMI equivalent.
#High Risk NSTEMI /CAD
-Acute.
-Troponin peaked at 2.420.
-S/P successful IVUS guided IVL and PCI of the proximal, proximal/mid and midLAD (overlapping Medtronic [place] 2.5 x 38 DENISE, 3.0 x 22 DENISE, post hoc Shockwave 2.5 x 12 IVL balloon, post dilated with a 2.5 NC balloon throughout, a 3.0 NC balloon in
the proximal and prox/mid segments to high pressure) with reduction in prox and mid stenosis to 0%, and reduction in prox/mid stenosis to 20%.
-DAPT with ASA and ticagrelor for at least 12 months, followed by aspirin indefinitely.
-Secondary prevention with high dose, high potency statin.
-OMT.
-Plan to re-cath with iFR of the 60% LCx and staged revascularization of the 75% RCA (CVLPRIT) tomorrow.
#ICMO/HFrEF/Flash Pulmonary Edema
-New diagnosis, acute.
-Initially required BIPAP, now on room air.
-LVEF 25-30%.
-SaO2 = 97% on room air.
-Daily weights.
-Change furosemide to 40 mg PO daily.
-Continue GDMT with metoprolol, dapagliflozin. Hold ACEI/ARB/ARNi/MRA until after cath tomorrow.
-Repeat echocardiogram in 3 months to evaluate for primary prevention ICD.
#Anion Gapped Metabolic Acidosis
-Resolved.
-AG = 17, Delta/Delta around 1.
-Lactate = 2.9.
-Beta-hydroxy butyrate = 0.23 (normal).
-EtOH = 51.
#FEN
-Hyponatremia (133) and hypokalemia.
-Na improving, K normalized.
-Reduce KCl 40 mEq to daily.
-I suspect hyponatremia is due to excess volume, though SIADH from pulmonary disease is possible.
-Normal cortisol, TSH.
-Monitor Na with diuresis.
#PPx
-SCD's, enoxaparin for DVT/VTE.
-No role for PPI at this time.
#Dispo
-Full code.
-IVU status.
Subjective/Interval History:
One minute of SVT overnight.
Weight down 0.2 kg.
SaO2 97% on room air.
BP but on the lower side.
Feels well.
DATA:
Cardiac Catheterization/PCI, 12/17/2024:
CONCLUSIONS
1. Right dominant circulation with a 75% lesion in the midportion of the small RCA, a densely calcified, 60% lesion in the proximal circumflex, a densely calcified, long, 70% lesion in the mid LAD, a densely calcified 90% lesion in the proximal/mid
LAD around the origin of the master septal arcade and a culprit, 95% lesion in the ostial/proximal LAD, status post successful IVUS guided intracoronary lithotripsy and PCI of the ostial/proximal/mid LAD lesions, with reduction in the
ostial/proximal and mid LAD lesions to 0% and the proximal/mid LAD lesion to 20%, restoring CARLA-3 flow.
2. Severely elevated filling pressures (LVEDP = 29 mmHg at 60.4 kg).
Transthoracic Echocardiogram, 12/17/2024:
CONCLUSIONS
Severely reduced left ventricular systolic function. Left ventricular ejection
fraction is 25-30%. LAD regional wall motion abnormality.
Normal right ventricular size. Normal right ventricular systolic function.
Mitral valve opens normally. Moderate mitral regurgitation.
No prior study available for comparison.
Physical Exam
Vital Signs/Labs
Vital Signs
Temp Pulse Resp BP Pulse Ox
36.6 C 77 16 92/58 97
12/18/24 15:08 12/18/24 15:06 12/18/24 15:08 12/18/24 15:06 12/18/24 15:08
12/17/24 12/18/24 12/19/24
11:59 11:59 11:59
Actual Weight 60.4 kg 54.5 kg
12/18/24 04:47
12/18/24 04:47
APTT Cancelled 12/17/24 23:25
Magnesium 2.2 mg/dl (1.6-2.3) 12/18/24 04:47
Triglycerides 121 mg/dl (10-149) 12/18/24 04:47
LDL Cholesterol, Calc 100 mg/dl 12/18/24 04:47
VLDL Cholesterol, Calc 24 mg/dl (0-30) 12/18/24 04:47
HDL Cholesterol 61 mg/dl 12/18/24 04:47
12/16/24
21:10
Iyr-R-Qzmqttkmzbu Pept 25626
LAB Results
12/16/24 12/17/24 12/17/24
21:10 01:46 08:52
Troponin I 0.118 H* 1.210 H* D 2.100 H* D
12/17/24 12/17/24 12/17/24
13:48 19:53 20:25
Troponin I 2.420 H* Cancelled 2.420 H*
12/18/24
08:07
Troponin I 2.000 H*
Physical Exam
Constitutional: No acute distress and Comfortable
EENT: Anicteric and Moist mucous membranes
Cardiovascular: Rhythm & rate is regular, Pedal edema is absent, JVD pressure is normal, S1S2 is normal and Murmur/rub/gallop absent
Respiratory: Respiratory effort normal, Lungs clear to auscul., Wheeze Absent, Crackles Absent and Rhonchi Absent
GI: Soft, Distention absent, Flat, Non tender and Normal bowel sounds
Neuro/Psych: AO x 3
Other: Cath Site (Right radial access site is C/D/I.)
Data Reviewed
-
Date of Service: December 18, 2024
Medical Decision Making: Reviewed Test Results, Independent Historian Assessment and Test Interpretation
EKG: Tracing Personally Visualized and interpreted and Report Reviewed by me
Echo: Report Reviewed by me
X-Ray/CT/US/MRI/NUC/PET: Image Personally Visualized and interpreted and Report Reviewed by me
Medical Tests (PFT, Pathology etc): Image Personally Visualized and interpreted and Report Reviewed by me
Labs: Labs Reviewed by me
Old Records: Reviewed
[2024-12-18] MEDS: LIPITOR 80 MG PO (17:04)
[2024-12-18] MEDS: LOVENOX 40 MG SC (17:04)
[2024-12-19] VITALS (17 sets, daily range): BP systolic 71–144; BP diastolic 55–104; BMI 19.5
[2024-12-19 05:02] LABS: Hematocrit 38.4 % (37.0-47.0); Mean Corp Hgb Conc. 33.9 g/dL (33.0-37.0); Mean Corpuscular Hgb 31.9 pg (27.0-31.0); Mean Corpuscular Volume 94.1 fL (81.0-99.0); Mean Platelet Volume 10.4 fL (7.4-10.4); Platelet Count 287 10^3/uL (130-400); Red Blood Cell Count 4.08 10^6/uL (4.20-5.40); Red Cell Dist. Width 13.9 % (11.5-14.5); White Blood Cell Count 11.3 10^3/uL (4.8-10.8)
[2024-12-19 05:30] LABS: Blood Urea Nitrogen 25 mg/dl (7-17); Calcium 9.3 mg/dl (8.4-10.2); Carbon Dioxide 23 mmol/L (22-30); Chloride 101 mmol/L (98-107); Estimated Creatinine Clearance 65 ml/min; Glucose 88 mg/dl (70-99); Magnesium 2.2 mg/dl (1.6-2.3); Potassium 4.2 mmol/L (3.5-5.1); Sodium 132 mmol/L (135-145); eGFR > 60.00
[2024-12-19] MEDS: LOW STRENGTH ASPIRIN 81 MG PO (08:24)
[2024-12-19] MEDS: BRILINTA 90 MG PO ×2 (08:24→19:45)
--- NOTE | 2024-12-19 08:39 | W.PN.CD ---
Today's Communication / Plan
-
Recath today.
iFR of LCx (likely residual LAD as well).
If iFR of LAD is negative, we will proceed with iFR guided PCI of LCx and PCI of RCA.
If iFR of LAD is positive, we will consider repeat IVL vs. defer to staged CABG.
Impression / Plan
-
Impression/Plan: 69 y/o female with HTN, remote ovarian CA complicated by DVT/PE admitted with flash pulmonary edema and acute coronary syndrome/STEMI equivalent.
#High Risk NSTEMI /CAD
-Acute.
-Troponin peaked at 2.420.
-S/P successful IVUS guided IVL and PCI of the proximal, proximal/mid and midLAD (overlapping Medtronic [place] 2.5 x 38 DENISE, 3.0 x 22 DENISE, post hoc Shockwave 2.5 x 12 IVL balloon, post dilated with a 2.5 NC balloon throughout, a 3.0 NC balloon in
the proximal and prox/mid segments to high pressure) with reduction in prox and mid stenosis to 0%, and reduction in prox/mid stenosis to 20%.
-DAPT with ASA and ticagrelor for at least 12 months, followed by aspirin indefinitely.
-Secondary prevention with high dose, high potency statin.
-OMT.
-Plan to re-cath with iFR of the 60% LCx and staged revascularization of the 75% RCA (CVLPRIT).
#ICMO/HFrEF
-New diagnosis, improved.
-LVEF 25-30%.
-Daily weights.
-Continue GDMT with metoprolol, dapagliflozin. Hold ACEI/ARB/ARNi/MRA until after cath tomorrow.
-Repeat echocardiogram in 3 months to evaluate for primary prevention ICD.
#Anion Gapped Metabolic Acidosis
-Resolved.
-AG = 17, Delta/Delta around 1.
-Lactate = 2.9.
-Beta-hydroxy butyrate = 0.23 (normal).
-EtOH = 51.
#FEN
-Hyponatremia (133) and hypokalemia.
-Na improving, K normalized.
-Reduce KCl 40 mEq to daily.
-I suspect hyponatremia is due to excess volume, though SIADH from pulmonary disease is possible.
-Normal cortisol, TSH.
-Monitor Na with diuresis.
#PPx
-SCD's, enoxaparin for DVT/VTE.
-No role for PPI at this time.
#Dispo
-Full code.
-IVU status.
Subjective/Interval History:
Weight down 1.3 kg.
Breathing continues to improve.
DATA:
Cardiac Catheterization/PCI, 12/17/2024:
CONCLUSIONS
1. Right dominant circulation with a 75% lesion in the midportion of the small RCA, a densely calcified, 60% lesion in the proximal circumflex, a densely calcified, long, 70% lesion in the mid LAD, a densely calcified 90% lesion in the proximal/mid
LAD around the origin of the master septal arcade and a culprit, 95% lesion in the ostial/proximal LAD, status post successful IVUS guided intracoronary lithotripsy and PCI of the ostial/proximal/mid LAD lesions, with reduction in the
ostial/proximal and mid LAD lesions to 0% and the proximal/mid LAD lesion to 20%, restoring CARLA-3 flow.
2. Severely elevated filling pressures (LVEDP = 29 mmHg at 60.4 kg).
Transthoracic Echocardiogram, 12/17/2024:
CONCLUSIONS
Severely reduced left ventricular systolic function. Left ventricular ejection
fraction is 25-30%. LAD regional wall motion abnormality.
Normal right ventricular size. Normal right ventricular systolic function.
Mitral valve opens normally. Moderate mitral regurgitation.
No prior study available for comparison.
Physical Exam
Vital Signs/Labs
Vital Signs
Temp Pulse Resp BP Pulse Ox
36.6 C 91 20 126/85 99
12/19/24 07:45 12/19/24 08:00 12/19/24 07:45 12/19/24 07:47 12/19/24 07:45
12/17/24 12/18/24 12/19/24
11:59 11:59 11:59
Actual Weight 60.4 kg 54.5 kg 53.1 kg
12/19/24 04:18
12/19/24 04:18
APTT Cancelled 12/17/24 23:25
Magnesium 2.2 mg/dl (1.6-2.3) 12/19/24 04:18
Triglycerides 121 mg/dl (10-149) 12/18/24 04:47
LDL Cholesterol, Calc 100 mg/dl 12/18/24 04:47
VLDL Cholesterol, Calc 24 mg/dl (0-30) 12/18/24 04:47
HDL Cholesterol 61 mg/dl 12/18/24 04:47
12/16/24
21:10
Hkj-B-[id number] Pept [id number]
LAB Results
12/16/24 12/17/24 12/17/24
21:10 01:46 08:52
Troponin I 0.118 H* 1.210 H* D 2.100 H* D
12/17/24 12/17/24 12/17/24
13:48 19:53 20:25
Troponin I 2.420 H* Cancelled 2.420 H*
12/18/24
08:07
Troponin I 2.000 H*
Physical Exam
Constitutional: No acute distress and Comfortable
EENT: Anicteric and Moist mucous membranes
Cardiovascular: Rhythm & rate is regular, Pedal edema is absent, JVD pressure is normal, S1S2 is normal and Murmur/rub/gallop absent
Respiratory: Respiratory effort normal, Lungs clear to auscul., Wheeze Absent, Crackles Absent and Rhonchi Absent
GI: Soft, Distention absent, Flat, Non tender and Normal bowel sounds
Neuro/Psych: AO x 3
Other: Cath Site (Right radial access site shows some mild ecchymosis.)
Data Reviewed
-
Date of Service: December 19, 2024
Medical Decision Making: Reviewed Test Results, Independent Historian Assessment and Test Interpretation
EKG: Tracing Personally Visualized and interpreted and Report Reviewed by me
Echo: Tracing Personally Visualized and interpreted and Report Reviewed by me
X-Ray/CT/US/MRI/NUC/PET: Image Personally Visualized and interpreted and Report Reviewed by me
Medical Tests (PFT, Pathology etc): Image Personally Visualized and interpreted and Report Reviewed by me
Labs: Labs Reviewed by me
Old Records: Reviewed
[2024-12-19 09:21] LABS: ACT-LR - POC 295 Seconds (116-155)
[2024-12-19 09:37] LABS: ACT-LR - POC 364 Seconds (116-155)
[2024-12-19 10:06] LABS: ACT-LR - POC 342 Seconds (116-155)
[2024-12-19 10:25] LABS: ACT-LR - POC 305 Seconds (116-155)
--- NOTE | 2024-12-19 11:00 | PTCARENOTE ---
Received pt post cath. VSS. Right radial cath site w/ radial band intact. Pt's radial site is ecchymotic. Pt's hand cyanotic. Pulse ox on right hand >95%. Orders noted. Pt denies any chst pain or sob. Will monitor.
[2024-12-19] MEDS: NSS 1000 IV (11:03)
--- NOTE | 2024-12-19 12:39 | ITS.CL.ANGIO ---
Lab Support Service Tech - Angioplasty
Angioplasty
Procedure Report:
CARDIAC CATHETERIZATION REPORT
Date of Procedure: 12/19/2024
Referring: Jermaine Corona D.O.
INDICATION: Staged PCI.
PROCEDURE:
1. Coronary angiography.
2. Successful IFR of the 60% proximal circumflex lesion.
3. Successful IFR of the 50% mid LAD lesion.
4. Successful intracoronary lithotripsy of the proximal circumflex lesion.
5. Successful IVUS guided PCI of the proximal circumflex lesion.
6. Successful intracoronary lithotripsy of the 50% mid LAD lesion.
A total of 86 minutes of procedural/moderate sedation was utilized. An independent medical unit secretary was present to assist with and help manage the patient's level of consciousness and physiologic status.
ACCESS:
1. 6 [place] right radial artery using a modified Seldinger technique.
CATHETERS:
1. 6 [place] EBU 3.5 guiding catheter.
2. 5 [place] angled pigtail.
HEMODYNAMIC DATA
Weight (kg): 53.1
AO (s/d/x, mmHg): 138/72/96
LV (s/x mmHg): 138/24 (A wave to 35)
LEFT VENTRICULOGRAPHY: Not performed.
CORONARY ANGIOGRAPHY
Dominance: Right.
Left Main: Relatively short, bifurcating vessel. There is distal calcification but no intraluminal stenosis.
LAD: Large size vessel giving rise to 1 significant diagonal as well as a large Mastel septal arcade. Patent stents are visible in the proximal and mid LAD. There is a notable 50% lesion, composed entirely of calcium in the mid LAD, just after
the stent overlap.
Ramus: Congenitally absent.
Circumflex: Large size, nondominant vessel giving rise to 1 large obtuse marginal which subsequently bifurcates into 2 daughter branches. There is a 50% lesion in the ostium of the circumflex. There is a densely calcified 60% lesion in the
proximal circumflex, proximal to the origin of OM1.
RCA: Not injected. Known to be a relatively small size, dominant vessel with a 75% lesion in the mid vessel.
INTERVENTION(S)
1. Successful IFR of the 60% proximal circumflex lesion, demonstrating occlusive disease (IFR = 0.79).
2. Successful IFR of the 50%, calcified mid LAD stent lesion, demonstrating nonocclusive disease (IFR = 0.94).
3. Successful intracoronary lithotripsy of the densely calcified, 60% proximal circumflex lesion (Shockwave 3.0 x 12 lithotripsy balloon).
4. Successful IVUS guided PCI of the 60% proximal circumflex lesion (Medtronic [place] 3.0 x 18 DENISE, postdilated with a 3.0 NC balloon throughout and a 3.25 NC balloon in the proximal margin) with reduction in stenosis to 0%, maintaining
CARLA-3 flow.
5. Successful intracoronary lithotripsy of the calcified 50% mid LAD stent lesion (shockwave 3.0 x 12 lithotripsy balloon).
6. Successful percutaneous transluminal angioplasty of the calcified 50% mid LAD stent lesion (3.25 x 12 NC balloon) with reduction in stenosis to 20-30%, maintaining CARLA-3 flow.
Narrative:
The decision was made to perform physiologic testing. A(n) EBU 3.5 guiding catheter. The guiding catheter was advanced into the ascending aorta and seated in the left main coronary artery. Additional heparin was given to obtain an ACT greater
than 250 seconds. An iFR wire was zeroed outside of the body, then inserted into the guiding sheath. The wire was advanced and the transducer was normalized just outside of the guiding catheter tip. The wire was advanced into the first obtuse
marginal, beyond the 60% proximal circumflex lesion. Three iFR measurements were taken. The lesion was determined to be occlusive (0.79).
Angiography was concerning for the 50% LAD lesion being flow-limiting. The decision was made to perform physiologic testing. The wire was pulled back from the circumflex and the transducer was normalized just outside of the guiding catheter tip.
The wire was advanced into the mid LAD, beyond the 50% stented mid LAD lesion. Three iFR measurements were taken. The lesion was determined to be nonocclusive (0.94).
The decision was made to proceed with percutaneous coronary intervention of the left circumflex. A Power Turn Flex wire was advanced into the distal OM1. The densely calcified, 60% proximal circumflex lesion was predilated with a 2.0 x 12
semi-compliant balloon to 12 tang. The semicompliant balloon was removed and a 3.0 x 12 noncompliant balloon was advanced with a 6 [place] GuideLiner support. Initially, the GuideLiner would not cross into the circumflex. The lesion was predilated
with the noncompliant balloon to 12 tang. While the balloon was inflated, the GuideLiner was advanced into the circumflex. When the balloon was deflated, the GuideLiner was advanced and the sheathing technique, advancing beyond the 60% lesion.
A Shockwave 3.0 x 12 coronary lithotripsy balloon was advanced over the wire and into the proximal circumflex lesion. The balloon was sterilely connected to the controller and prepped to negative pressure. Meticulous care was taken while
positioning the shockwave balloon. Once in satisfactory position, the balloon was inflated to 4 tang. After confirming good contact with the vessel wall, 10 pulses were delivered. After delivering 10 pulses, the balloon was inflated to 6 tang then
deflated. The entire lesion was treated in a similar manner for total of 6 rounds.
The Shockwave balloon was removed. The decision was made to perform intracoronary imaging. An IVUS catheter was advanced through the guiding catheter and into the ostium of the artery. Ring down was performed once the imaging crystal was no longer
inside of the guiding catheter. The IVUS catheter was advanced into the obtuse marginal. Intravascular ultrasound was performed in a retrograde fashion using a slow pullback. Intracoronary imaging demonstrated atherosclerotic disease with dense
calcification in the Shockwave area. Vessel measurements were taken. The IVUS catheter was withdrawn.
A Medtronic [place] 3.0 x 18 drug-eluting stent was advanced. Unfortunately, the stent would not pass into the lesion. The stent was withdrawn and the 3.0 x 12 noncompliant balloon was readvanced. The balloon was used to predilate the
lesion again. The balloon was then used as an anchor to allow the GuideLiner to advance. The balloon was deflated and sheath by the GuideLiner. The noncompliant balloon was removed and the stent was readvanced, this time passing into the
circumflex without difficulty. The stent was deployed at 12 atmospheres. The stent balloon was removed. A 3.0 x 12 noncompliant balloon was advanced into the stent and the stent was postdilated to 16 atmospheres in the distal margin and 18 tang in
the proximal margin. The 3.0 x 12 noncompliant balloon was withdrawn and a 3.25 x 12 noncompliant balloon was advanced. The proximal margin of the stent was postdilated to 12 tang. The noncompliant balloon was withdrawn.
Angiography was reviewed. In spite of the nonocclusive nature of the 50% mid LAD stenosis, there was still significant stent deformation, concerning for downstream in-stent restenosis potential. Given the residual number of pulses remaining on the
shockwave balloon, the decision was made to perform intracoronary lithotripsy on this lesion. The power turn flex wire was withdrawn from the circumflex artery and redirected into the distal LAD. The 3.0 x 12 NC balloon was advanced into the mid
LAD and the 50% lesion was dilated to 12 tang. With the balloon serving as an anchor, the GuideLiner was advanced into the mid LAD, beyond the lesion in question. The balloon was deflated and withdrawn. The Shockwave 3.0 x 12 coronary lithotripsy
balloon was advanced over the wire and into the 50% stented mid LAD lesion. Once in satisfactory position, the balloon was inflated to 4 tang. After confirming good contact with the vessel wall, 10 pulses were delivered. After delivering 10
pulses, the balloon was inflated to 6 tang then deflated. The entire lesion was treated in a similar manner for total of 6 rounds, exhausting the balloon.
The shockwave balloon was withdrawn and the 3.25 x 12 noncompliant balloon was readvanced. The densely calcified, 50% stented mid LAD lesion was postdilated to 20 tang. The remainder of the stented segment was postdilated to 16 tang. The
noncompliant balloon was withdrawn.
Angiography was performed in orthogonal views, confirming good circumflex stent expansion and an improved mid LAD stent expansion (50% to 20-30%) and an overall excellent angiographic result. The coronary wire was withdrawn and the guide was
disengaged from the artery. The catheter was removed over a standard J-wire. Given her 2 recent cardiac catheterizations, the decision was made to defer PCI of the 75% mid RCA lesion to the outpatient setting.
Closure Device: Vascular band.
Radiation (mGy): 353.32
DAP (cm2.Gy): 16.7196
Fluoroscopy time (minutes): 20.4
CONCLUSIONS
1. Right dominant circulation with a known 75% lesion in the mid RCA, a 50% lesion in the ostium of the circumflex, and occlusive, densely calcified 60% proximal circumflex lesion status post successful intracoronary lithotripsy (shockwave 3.0 x 12
lithotripsy balloon) and IVUS guided PCI (Medtronic [place] 3.0 x 18 DENISE, postdilated with a 3.0 NC balloon throughout and a 3.25 NC balloon in the proximal margin) with reduction in stenosis to 0%, maintaining CARLA-3 flow, patent stents in
the proximal and mid LAD with a 50%, densely calcified, stented mid LAD lesion status post successful post hoc intracoronary lithotripsy (shockwave 3.0 x 12 lithotripsy balloon) and percutaneous transluminal angioplasty (3.25 x 12 NC balloon to 18
tang) with reduction in stenosis to 20-30%, maintaining CARLA-3 flow.
2. Severely elevated filling pressures (LVEDP = 24 mmHg at 53.1 kg) with evidence of diastolic dysfunction (A wave to 35 mmHg).
RECOMMENDATIONS:
1. Expectant management after cardiac catheterization via right radial approach approach.
2. Limited weight bearing on the right wrist for one week.
3. Maintain dual antiplatelet therapy with aspirin and ticagrelor for at least 12 months, followed by aspirin indefinitely.
4. Maintain aggressive secondary prevention with high-dose, high potency statin.
5. Continue diuresis given severe elevation in LVEDP. She may require an LVEDP between 18 to 20 mmHg.
6. Plan for staged PCI of the 75% mid RCA lesion in 2 - 3 weeks.
Copy to: Wen Evans M.D.
Jermaine Corona DO, FACC, FACP
--- NOTE | 2024-12-19 13:01 | CM ---
Chart reviewed. Patient is independent of ADLS, lives with S.O in a 2nd level apartment, full flight of stairs, 0 DME. Plan is for the patient to return home. CM to follow
[2024-12-19] MEDS: FARXIGA 10 MG PO (13:32)
[2024-12-19] MEDS: LASIX 40 MG PO (13:32)
[2024-12-19] MEDS: TOPROL XL 25 MG PO (13:33)
[2024-12-19] MEDS: KCL 40 MEQ PO (13:33)
[2024-12-19] MEDS: LIPITOR 80 MG PO (17:42)
[2024-12-19] MEDS: LOVENOX 40 MG SC (18:36)
--- NOTE | 2024-12-20 02:35 | PTCARENOTE ---
Pt NSR on tele with HR 70s-80s. No complaints of CP or SOB. R radial cath site c/d/i with ecchymosis noted. Education provided on activity restrictions and pt verbalizes understanding. Ambulating independently in room without difficulty. Can
make needs known. Call warren within reach.
[2024-12-20 03:03] VITALS: BP 98/73
[2024-12-20 03:39] LABS: Hematocrit 39.6 % (37.0-47.0); Hemoglobin 13.3 g/dL (12.0-16.0); Mean Corp Hgb Conc. 33.6 g/dL (33.0-37.0); Mean Corpuscular Volume 95.4 fL (81.0-99.0); Mean Platelet Volume 10.2 fL (7.4-10.4); Platelet Count 278 10^3/uL (130-400); Red Blood Cell Count 4.15 10^6/uL (4.20-5.40); Red Cell Dist. Width 13.7 % (11.5-14.5); White Blood Cell Count 11.1 10^3/uL (4.8-10.8)
[2024-12-20 04:11] LABS: Blood Urea Nitrogen 22 mg/dl (7-17); Calcium 9.3 mg/dl (8.4-10.2); Carbon Dioxide 22 mmol/L (22-30); Chloride 101 mmol/L (98-107); Estimated Creatinine Clearance 64 ml/min; Glucose 87 mg/dl (70-99); Potassium 4.2 mmol/L (3.5-5.1); Sodium 135 mmol/L (135-145); eGFR > 60.00
[2024-12-20 06:00] VITALS: BMI 19.3
[2024-12-20 06:58] VITALS: BP 112/72
--- NOTE | 2024-12-20 08:59 | W.PN.CARDCBS ---
Addendum entered and electronically signed by Gustavo Hairston MD 12/20/24 09:33:
Patient seen and examined in collaboration with LOCOMOTIVE CRANE ENGINEER; agree with below.
-Patient is stable status-post PCI to proximal LCX yesterday; EF 25-30%.
-Continue aspirin/Brilinta x 1 year, then aspirin indefinitely. Continue
-Atorvastatin 80 mg daily, Farxiga 10 mg daily, Toprol-XL 25 mg daily, potassium chloride 40 mEq daily, and Lasix 40 mg daily.
-Stable for discharge to home; outpatient follow-up with Cardiology.
Original Note:
Today's Communication / Plan
-
post PCI LCX and LAD
return in 2 weeks for RCA PCI
DAPT
GDMT for HFrEF
home today
Impression / Plan
-
Impression/Plan: 69 y/o female with HTN, remote ovarian CA complicated by DVT/PE admitted with flash pulmonary edema and acute coronary syndrome/STEMI equivalent.
#High Risk NSTEMI /CAD
-Acute.
-Troponin peaked at 2.420.
-12/17/24 S/P PCI proximal/mid and midLAD (overlapping Medtronic Braden 2.5 x 38 DENISE, 3.0 x 22 DENISE, post hoc Shockwave 2.5 x 12 IVL balloon.
-12/19/24 s/p shockwave and PCI LCx and shockwave and balloon angioplasty of LAD
-no cp, sob, tele no ectopy, rad site with some ecchymosis
-DAPT with ASA and ticagrelor for at least 12 months, followed by aspirin indefinitely.
-Secondary prevention with high dose, high potency statin.
-OMT.
-Plan to stage revascularization of the 75% RCA (CULPRIT study) will return in 2 weeks
-BMP in 1 week
-Cardiac rehab c/s, plan for after full revascularization.
#ICMO/HFrEF
-New diagnosis, improved.
-LVEF 25-30%.
-Daily weights. Continue lasix 40mg PO and KCL 40meq PO daily. Check BMP in 1 week
-Continue GDMT with metoprolol, dapagliflozin. BP low o/n will need oupt initiation of ACEI/ARB/ARNi/MRA
-Repeat echocardiogram in 3 months to evaluate for primary prevention ICD.
#Anion Gapped Metabolic Acidosis
-Resolved.
-AG = 17, Delta/Delta around 1.
-Lactate = 2.9.
-Beta-hydroxy butyrate = 0.23 (normal).
-EtOH = 51.
#FEN
-Hyponatremia (133) and hypokalemia - resolved
-Na improving, K normalized.
-Reduce KCl 40 mEq to daily.
-I suspect hyponatremia is due to excess volume, though SIADH from pulmonary disease is possible.
-Normal cortisol, TSH.
-Monitor Na with diuresis.
#PPx
-SCD's, enoxaparin for DVT/VTE.
-No role for PPI at this time.
#Dispo
-Full code.
-IVU status.
DATA:
Cardiac Catheterization/PCI, 12/17/2024:
CONCLUSIONS
1. Right dominant circulation with a 75% lesion in the midportion of the small RCA, a densely calcified, 60% lesion in the proximal circumflex, a densely calcified, long, 70% lesion in the mid LAD, a densely calcified 90% lesion in the proximal/mid
LAD around the origin of the master septal arcade and a culprit, 95% lesion in the ostial/proximal LAD, status post successful IVUS guided intracoronary lithotripsy and PCI of the ostial/proximal/mid LAD lesions, with reduction in the
ostial/proximal and mid LAD lesions to 0% and the proximal/mid LAD lesion to 20%, restoring CARLA-3 flow.
2. Severely elevated filling pressures (LVEDP = 29 mmHg at 60.4 kg).
PCI 12/19/24
1. Successful IFR of the 60% proximal circumflex lesion, demonstrating occlusive disease (IFR = 0.79).
2. Successful IFR of the 50%, calcified mid LAD stent lesion, demonstrating nonocclusive disease (IFR = 0.94).
3. Successful intracoronary lithotripsy of the densely calcified, 60% proximal circumflex lesion (Shockwave 3.0 x 12 lithotripsy balloon).
4. Successful IVUS guided PCI of the 60% proximal circumflex lesion (Medtronic Braden [place] 3.0 x 18 DENISE, postdilated with a 3.0 NC balloon throughout and a 3.25 NC balloon in the proximal margin) with reduction in stenosis to 0%, maintaining
CARLA-3 flow.
5. Successful intracoronary lithotripsy of the calcified 50% mid LAD stent lesion (shockwave 3.0 x 12 lithotripsy balloon).
6. Successful percutaneous transluminal angioplasty of the calcified 50% mid LAD stent lesion (3.25 x 12 NC balloon) with reduction in stenosis to 20-30%, maintaining CARLA-3 flow.
Transthoracic Echocardiogram, 12/17/2024:
CONCLUSIONS
Severely reduced left ventricular systolic function. Left ventricular ejection
fraction is 25-30%. LAD regional wall motion abnormality.
Normal right ventricular size. Normal right ventricular systolic function.
Mitral valve opens normally. Moderate mitral regurgitation.
No prior study available for comparison.
Progress Note - Flask Cleaner
Subjective
Date of Service: December 20, 2024
no cp, sob
Objective
Labs:
12/20/24 03:16
12/20/24 03:16
Labs
Hgb 13.3 g/dL (12.0-16.0) 12/20/24 03:16
Hct 39.6 % (37.0-47.0) 12/20/24 03:16
Plt Count 278 10^3/uL (130-400) 12/20/24 03:16
APTT Cancelled 12/17/24 23:25
Sodium 135 mmol/L (135-145) 12/20/24 03:16
Potassium 4.2 mmol/L (3.5-5.1) 12/20/24 03:16
BUN 22 mg/dl (7-17) H 12/20/24 03:16
Creatinine 0.7 mg/dL (0.6-1.0) 12/20/24 03:16
Glucose 87 mg/dl (70-99) 12/20/24 03:16
Troponins
12/17/24 12/17/24 12/17/24
08:52 13:48 19:53
Troponin I 2.100 H* D 2.420 H* Cancelled
12/17/24 12/18/24
20:25 08:07
Troponin I 2.420 H* 2.000 H*
Vital Signs and I&O:
Vital Signs
Temp Pulse Resp BP Pulse Ox
97.7 F 74 20 112/72 99
12/20/24 06:58 12/20/24 07:00 12/20/24 06:58 12/20/24 06:58 12/20/24 06:58
Vital Signs
Temp Pulse Resp BP Pulse Ox
97.7 F 74 20 112/72 99
12/20/24 06:58 12/20/24 07:00 12/20/24 06:58 12/20/24 06:58 12/20/24 06:58
Intake & Output
12/18/24 12/19/24 12/20/24 12/21/24
06:59 06:59 06:59 06:59
Intake Total 1260 / 1260 1200 / 1200
Output Total 3025 / 3025 1000 / 1000 500 / 500
Balance -1765 / -1765 -1000 / -1000 700 / 700
Physical Exam
Physical Exam
NAD< AOx3
S1, S2, RRR
CTAB, non labored, no wheeze
SNTND bsx4
R rad site with some ecchymosis, good pulse
[2024-12-20] MEDS: FARXIGA 10 MG PO (09:23)
[2024-12-20] MEDS: LOW STRENGTH ASPIRIN 81 MG PO (09:23)
[2024-12-20] MEDS: TOPROL XL 25 MG PO (09:24)
[2024-12-20] MEDS: LASIX 40 MG PO (09:24)
[2024-12-20] MEDS: BRILINTA 90 MG PO (09:24)
[2024-12-20] MEDS: KCL 40 MEQ PO (09:24)
[2024-12-20 11:02] VITALS: BP 98/60
--- NOTE | 2024-12-20 11:19 | W.DS.TRANS ---
DC Summary - Computer Terminal Operator
-
Discharge Instructions:
Discharge Diagnosis/Procedures STEMI, s/p lithotripsy with angioplasty and
stent x2 to Left Anterior Descending artery (
09/30), Angioplasty with stent to left
circumflex artery and balloon angioplasty to LAD
(12/19/24)
Diet Low Cholesterol
Activity No strenuous activity
Additional Activity For 1 week
Driving Restrictions No driving for 24 hours
Blood Work Check BMP in 1 week
Other Services Cardiac Rehab
Instructions:
Stand-Alone Forms: DC Instructions- Cath/EP Lab
Changes to Home Medications: Yes
Discharge Medications:
DC Medications w/original date entered in [employer]
aspirin 81 mg chewable tablet 81 mg PO DAILY #1 tab 12/17/24
atorvastatin 80 mg tablet 80 mg PO QPM #90 tabs 12/17/24
dapagliflozin propanediol 10 mg tablet 10 mg PO DAILY #90 tabs 12/17/24
metoprolol succinate 25 mg tablet,extended release 24 hr 25 mg PO DAILY #90 tabs 12/17/24
nitroglycerin 0.4 mg sublingual tablet 0.4 mg sublingual [id number] PRN chest pain or SBP > 150 mmHg #20 tabs 12/17/24
ticagrelor 90 mg tablet (Brilinta) 90 mg PO BID #180 tabs 12/17/24
furosemide 40 mg tablet 40 mg PO DAILY #90 tabs 12/20/24
potassium chloride 20 mEq tablet,extended release(part/cryst) 40 meq (2 x 20 mEq) PO DAILY #90 tabs 12/20/24
Home Medication Changes
all meds are new
Pending Results: No
[2024-12-20 15:22] VITALS: BP 121/79
--- NOTE | 2024-12-20 16:10 | PTCARENOTE ---
Pt's IV line & library monitor D/C'd. D/C instructions discussed w/pt & significant other. Pt escorted out via WC with spouse driving her home. Pt left w/personal belongings incl cell phone & business enterprise officer.
== END 2024-12-20 17:01 | disposition home or self-care (01) | DRG 323 ==
LOC: IVU 01:34
PROVIDERS: Nurse Practitioner; Nurse Practitioner Adult Health; Nurse Practitioner Gerontology; ADMITTING PHYSICIAN Internal Medicine Cardiovascular Disease; EMERGENCY PHYSICIAN Emergency Medicine
PROC: 5A09357 Assistance with Respiratory Ventilation, Less than 24 Consecutive Hours, Continuous Positive Airway Pressure (ICD-10-PCS; 2024-12-16)
PROC: 4A023N7 Measurement of Cardiac Sampling and Pressure, Left Heart, Percutaneous Approach (ICD-10-PCS; 2024-12-17)
PROC: B240ZZ3 Ultrasonography of Single Coronary Artery, Intravascular (ICD-10-PCS; 2024-12-17)
PROC: B2111ZZ Fluoroscopy of Multiple Coronary Arteries using Low Osmolar Contrast (ICD-10-PCS; 2024-12-17)
PROC: 02F03ZZ Fragmentation in Coronary Artery, One Artery, Percutaneous Approach (ICD-10-PCS; 2024-12-17)
PROC: 027035Z Dilation of Coronary Artery, One Artery with Two Drug-eluting Intraluminal Devices, Percutaneous Approach (ICD-10-PCS; 2024-12-17)
PROC: 027034Z Dilation of Coronary Artery, One Artery with Drug-eluting Intraluminal Device, Percutaneous Approach (ICD-10-PCS; 2024-12-19)
PROC: 4A033BC Measurement of Arterial Pressure, Coronary, Percutaneous Approach (ICD-10-PCS; 2024-12-19)
PROC: 02F13ZZ Fragmentation in Coronary Artery, Two Arteries, Percutaneous Approach (ICD-10-PCS; 2024-12-19)
DX: I21.4 Non-ST elevation (NSTEMI) myocardial infarction (principal); I50.21 Acute systolic (congestive) heart failure; J96.01 Acute respiratory failure with hypoxia; E87.20 Acidosis, unspecified; E87.1 Hypo-osmolality and hyponatremia; I11.0 Hypertensive heart disease with heart failure; I25.5 Ischemic cardiomyopathy; I25.10 Atherosclerotic heart disease of native coronary artery without angina pectoris; I34.0 Nonrheumatic mitral (valve) insufficiency; E87.6 Hypokalemia; Z11.52 Encounter for screening for COVID-19; Z85.43 Personal history of malignant neoplasm of ovary; Z86.711 Personal history of pulmonary embolism; Z86.718 Personal history of other venous thrombosis and embolism
CPT/HCPCS: 71045; 80048; 80053; 80061; 82010; 82077; 82533; 82570; 83036; 83605; 83735; 83880; 83930; 83935; 84300; 84443; 84484; 85025; 85027; 85347; 85730; 87502; 87811; 92972; 92978; 93005; 93306; 93458; 93799; 94660; 96374; 96375; 99152; 99153; 99291; C1725; C1753; C1769; C1874; C1894; C9600; Q9950; Q9967

== ENCOUNTER 2025-01-06 09:38 | Day surgery (SDC) | payer OTHER, SELFPAY ==
[2025-01-06] VITALS (10 sets, daily range): BP systolic 90–163; BP diastolic 47–81
[2025-01-06 13:57] LABS: ACT-LR - POC 368 Seconds (116-155)
[2025-01-06 14:24] LABS: ACT-LR - POC 314 Seconds (116-155)
--- NOTE | 2025-01-06 14:29 | ITS.CL.ANGIO ---
Paint Tester - Angioplasty
Angioplasty
Procedure Report:
CARDIAC CATHETERIZATION REPORT
Date of Procedure: 01/06/2025
Referring: Jermaine Corona D.O.
INDICATION: Staged PCI after anterior ST elevation myocardial infarction.
PROCEDURE:
1. Left heart catheterization.
2. RCA angiography.
3. Successful PCI of the mid RCA.
4. Successful PCI of the ostial RCA.
A total of 70 minutes of procedural/moderate sedation was utilized. An independent medical affairs specialist was present to assist with and help manage the patient's level of consciousness and physiologic status.
ACCESS:
1. 6 Cymro right rate artery using a modified Seldinger technique.
CATHETERS:
1. 6 Cymro JR4 guiding catheter.
HEMODYNAMIC DATA
Weight (kg): 61.0
AO (s/d/x, mmHg): 124/71/93
LV (s/x mmHg): 126/6
LEFT VENTRICULOGRAPHY: Not performed.
CORONARY ANGIOGRAPHY
Dominance: Right.
Left Main: Not injected. Known to be LM relatively short, bifurcating vessel with distal calcification but no intraluminal stenosis.
LAD: Not injected. Known to be a large vessel giving rise to 1 significant diagonal as well as a large master septal arcade with stents in the proximal and mid LAD.
Ramus: Congenitally absent.
Circumflex: Not injected. Known to be a large size, nondominant vessel giving rise to 1 large obtuse marginal. A stent is visible in the proximal circumflex.
RCA: Medium size, dominant vessel. There is a tubular, 70% lesion in the mid RCA. There is a densely calcified, underappreciated 80% lesion in the ostium of the vessel. The proximal and mid RCA are severely tortuous.
INTERVENTION(S)
1. Successful PCI of the 70% mid RCA lesion (Medtronic [place] 2.0 x 22 DENISE, postdilated with a 2.0 NC balloon) with reduction in stenosis to 0%, maintaining CARLA-3 flow.
2. Successful PCI of the 80% ostial RCA lesion (Medtronic Braden [place] 2.25 x 12 DENISE, postdilated with a 2.5 NC balloon to 20 tang) with reduction in stenosis to 0%, maintaining CARLA-3 flow.
Narrative:
The decision was made to proceed with percutaneous coronary intervention. The 6Fr JR4 guiding catheter was advanced to the aortic root and seated in the right coronary artery. Additional heparin was given and a Power Turn Flex wire was advanced into
the distal RCA with some difficulty given the severe tortuosity. The rigid portion of the wire created a significant amount of bleeding in the proximal RCA. We attempted to advance a 2.0 x 12 semicompliant balloon to the lesion, but encountered
significant difficulty advancing the wire due to the underappreciated 80% lesion as well as limited guide support. A 6 Cymro guide liner was advanced over the balloon to assist with support, ultimately allowing the balloon to traverse the proximal
vessel and enter the mid RCA. The 70% mid RCA lesion was predilated with a 2.0 x 12 semi-compliant balloon to 12 tang.
It became quite clear that intervention on the ostial RCA would become necessary, especially for any level stent delivery. The 2.0 semicompliant balloon was used to perform angioplasty on the ostium of the RCA. This allowed for slightly improved
GuideLiner support.
The semi-compliant balloon was removed and a Medtronic Braden [place] 2.0 x 22 drug-eluting stent was advanced but would not cross the ostial lesion in spite of the support of the GuideLiner. The stent was withdrawn and the decision made to treat
the ostial RCA lesion more aggressively. Nitroglycerin 100 mcg was given intracoronary and the 2.0 x 12 semicompliant balloon was readvanced. The ostial RCA was dilated to 18 tang and used to allow for improved GuideLiner support. The
semicompliant balloon was removed and a 2.5 x 12 noncompliant balloon was advanced. The ostial RCA was dilated to 18 tang, again allowing for sheathing of the balloon by the GuideLiner and improved support. With this improved GuideLiner support, we
were now able to pass equipment much more freely.
The noncompliant balloon was removed and the Medtronic 2.0 x 22 DENISE was readvanced. Meticulous care was taken while positioning the stent, confirming that the distal margin of the stent cover the lesion entirely and the proximal margin of the stent
did not disrupt the pleated section of the artery. The stent was deployed at 12 atmospheres. The stent balloon was removed. A 2.0 x 12 noncompliant balloon was advanced into the stent and the stent was postdilated to 16 atmospheres.
We then turned our attention to the ostial RCA. With the GuideLiner in good position, a Medtronic [place] 2.25 x 12 drug-eluting stent was advanced into the proximal vessel. The catheter and GuideLiner were disengaged, but kept close to the
ostium of the vessel to ensure appropriate imaging. Meticulous care was taken while positioning the stent, ensuring that 1-2 stent struts into the aorta to allow for complete coverage of the ostial lesion. We were satisfied with the position, the
stent was deployed at 12 tang. A 2.5 x 8 noncompliant balloon was advanced into the ostial stent with some difficulty. The distal margin of the stent was postdilated to 16 tang. The proximal margin of the stent was dilated to 20 tang.
Angiography was performed in orthogonal views, confirming good stent expansion and an excellent angiographic result. The coronary wire was withdrawn and the guide was disengaged from the artery. The catheter was removed over a standard J-wire.
Closure Device: Vascular band.
Radiation (mGy): 514.63
DAP (cm2.Gy): 46.7006
Fluoroscopy time (minutes): 23.0
CONCLUSIONS
1. Right dominant circulation with prior PCI to the LAD and circumflex and residual RCA disease, now status post successful PCI of a 70% mid RCA lesion (Medtronic Braden [place] 2.0 x 22 DENISE, postdilated with a 2.0 NC balloon) and an
underappreciated, densely calcified 80% ostial RCA lesion (Medtronic Braden [place] 2.25 x 12 DENISE, postdilated with a 2.5 NC balloon to 20 tang) with reduction in stenosis of both stenoses to 0%, maintaining CARLA-3 flow.
2. Normal filling pressures (LVEDP = 6 mmHg at 61.0 kg).
RECOMMENDATIONS:
1. Expectant management after cardiac catheterization via right radial approach.
2. Limited weight bearing on the right wrist for one week.
3. Maintain dual antiplatelet therapy with aspirin and ticagrelor for at least 1 year, followed by aspirin indefinitely.
4. Aggressive secondary prevention with high-dose, high potency statin. Goal LDL <55.
5. OMT/GDMT as hemodynamics will tolerate.
6. Referral to cardiac rehab.
Copy to: Wen Evans M.D.
Jermaine Corona DO, FACC, FACP
[2025-01-06] MEDS: NSS 500 IV (15:05)
[2025-01-06 15:22] LABS: ACT-LR - POC > 397 Seconds (116-155)
--- NOTE | 2025-01-06 17:31 | W.PN.UPDATE ---
Update Note
Progress Note Update
Pt seen post RCA PCI. RIght radial cath site without ht/bleeding, non tender. OOB ambulating. Post EKG NSR w/PAC 60s, lateral ST/T abn as before. To remain on DAPT w/asa, brilinta as before. Cardiac rehab consulted. Followup at [facility] as scheduled.
Home today if cath site/tele remain stable.
== END 2025-01-06 18:56 | disposition home or self-care (01) ==
LOC: CATH 09:38
PROVIDERS: ATTENDING PHYSICIAN Internal Medicine Cardiovascular Disease; FAMILY PHYSICIAN Family Medicine
DX: I25.10 Atherosclerotic heart disease of native coronary artery without angina pectoris (principal); I21.3 ST elevation (STEMI) myocardial infarction of unspecified site; I10 Essential (primary) hypertension; Z95.5 Presence of coronary angioplasty implant and graft; Z79.02 Long term (current) use of antithrombotics/antiplatelets; Z79.82 Long term (current) use of aspirin; Z86.718 Personal history of other venous thrombosis and embolism
CPT/HCPCS: 99152; 99153; 85347; 93005; 93458; C1725; C1874; C1894; C9600

== ENCOUNTER 2025-01-24 16:54 | Outpatient (RCR) | payer OTHER, SELFPAY | END 2025-01-24 23:59 | disposition home or self-care (01) | LOC: CRHB 16:54 | PROVIDERS: ATTENDING PHYSICIAN Internal Medicine Cardiovascular Disease; PRIMARYCARE PHYSICIAN Family Medicine | DX: I21.01 ST elevation (STEMI) myocardial infarction involving left main coronary artery (principal); Z95.1 Presence of aortocoronary bypass graft | CPT/HCPCS: 71046; 76700; 80053; 83880; 84484; 85025; 93005; 93797; 93798 ==

== ENCOUNTER 2025-01-24 18:21 | Emergency (ER) | payer OTHER, SELFPAY ==
[2025-01-24 18:24] VITALS: BP 141/67
[2025-01-24 19:20] LABS: % Basophils 0.5 % (0-2); % Eosinophils 12.7 % (0-6); % Immature Granulocytes 0.4 % (0-0.5); % Lymphocytes 12.5 % (20.5-51.1); % Monocytes 7.4 % (1.7-9.3); % Neutrophils 66.5 % (42.2-75.2); Absolute Basophils 0.1 10^3/uL (0-0.2); Absolute Eosinophils 1.5 10^3/uL (0-0.7); Absolute Immature Granulocytes 0.1 10^3/uL (0-0.05); Absolute Lymphocytes 1.5 10^3/uL (1.2-3.4); Absolute Monocytes 0.9 10^3/uL (0.1-0.6); Absolute Neutrophils 7.9 10^3/uL (1.4-6.5); Hematocrit 33.5 % (37.0-47.0); Hemoglobin 11.9 g/dL (12.0-16.0); Mean Corp Hgb Conc. 35.5 g/dL (33.0-37.0); Mean Corpuscular Hgb 31.7 pg (27.0-31.0); Mean Corpuscular Volume 89.3 fL (81.0-99.0); Mean Platelet Volume 9.7 fL (7.4-10.4); Nucleated Red Blood Cells % 0 %; Platelet Count 283 10^3/uL (130-400); Red Blood Cell Count 3.75 10^6/uL (4.20-5.40); Red Cell Dist. Width 12.9 % (11.5-14.5); White Blood Cell Count 11.8 10^3/uL (4.8-10.8)
[2025-01-24 19:34] LABS: Carbon Dioxide 29 mmol/L (22-30)
[2025-01-24 19:41] LABS: NT-proBNP 3160 pg/ml; Troponin I 0.018 ng/ml
[2025-01-24 19:45] LABS: ALT (SGPT) 327 U/L (0-35); AST (SGOT) 450 U/L (14-36); Albumin 3.6 g/dl (3.5-5.0); Alkaline Phosphatase 711 U/L (38-126); Blood Urea Nitrogen 13 mg/dl (7-17); Calcium 9.1 mg/dl (8.4-10.2); Chloride 91 mmol/L (98-107); Glucose 151 mg/dl (70-99); Potassium 3.3 mmol/L (3.5-5.1); Sodium 130 mmol/L (135-145); Total Bilirubin 1.9 mg/dl (0.2-1.3); Total Protein 6.4 g/dl (6.3-8.2); eGFR > 60.00
[2025-01-24 19:51] VITALS: BP 151/78
[2025-01-24 19:53] VITALS: BMI 18.0
[2025-01-24] MEDS: NSS 500 IV (20:03)
--- NOTE | 2025-01-24 20:03 | ED.GENMED ---
History of Present Illness
General
Chief Complaint: Heart Rate Problem
Source: patient and spouse
Time Seen by Provider: 01/24/25 19:32
History of Present Illness
History of Present Illness:
69-year-old female presents emergency department after being sent here from cardiac rehab. Patient had a recent catheterization and several stents in her RCA, she is compliant with her post PA medications. She woke this morning instead that she
felt kind of dizzy all day described as 'lightheadedness', unclear if positional, not described as vertigo or sense of spinning. She does admit to poor p.o. intake just related to poor appetite including fluids. She went to rehab today describe
the lightheadedness so instead of the treadmill they had her use the arm machine. She was noted to have elevated heart rate and stopped. She was asymptomatic during this. Then, she used machine again and said that she felt a 'blip palpitations
and she was noted to be tachycardic again. She therefore was sent to the emergency department. Patient feels perfectly fine at this time. She denies dyspnea, chest pain or pressure, arm pain, nausea, vomiting, diaphoresis. She denies back pain.
She thinks she is dehydrated, no lightheadedness at this time.
Past History
Past History
ED Past Medical History: CAD, HTN and Other (Ovarian cancer, DVT, PE, heart failure with reduced ejection fraction)
ED Past Surgical History: Cardiac
Social History
Tobacco: Non-smoker
Alcohol: Former
Drug: None
Personal: Partner
Employment: Employed
Family History
Family History: CAD
Phy Exam
Physical Exam
Physical Exam:
GENERAL: Alert , in no apparent distress
EYE: pupils equal and reactive
NECK: Supple, no significant adenopathy.
ENT: o/p clr, mmm.
CARDIAC: Regular rate and rhythm .
LUNGS: Clear breath sounds bilaterally, no acute respiratory distress, no wheezes/rales/rhonchi
ABDOMEN: Soft, without focal tenderness, no r/g, no cvat
NEUROLOGICAL: Alert and oriented, no focal neuro deficits
SKIN: Warm and dry, skin intact.
MUSCULOSKELETAL: No edema, well perfused.
PSYCH: Normal and appropriate interaction.
Course
Orders/Labs/Results
Orders:
Orders
01/24/25 18:27
Electrocardiogram (*1) Urgent
Reason for Study: Tachycardia
01/24/25 18:58
Electrocardiogram (*1) Urgent
Reason for Study: Other
Other Reason for Exam: Respiratory Distress
Cardiac Monitoring- Treatment ONCE
EKG- Treatment ONCE
IV Insert/Care/Rem.- Treatment PRN
CR Chest - 2 Views Urgent
Comment:
Reason For Exam: respiratory distress
O2 Therapy [RESP] Urgent
Titrate/Wean O2 to maintain O2 sat greater than (%): 93
Special Instructions: TO MAINTAIN CONTINUOUS O2 SATS >/= 93%
Pulse Ox/cont/shift [RESP] Urgent
Quantity: 1
Special Instructions: continuous pulse ox
01/24/25 19:08
Complete Blood Count/With Diff Urgent
Comprehensive Metabolic Panel Urgent
NT-proBNP Urgent
Troponin I Urgent
01/24/25 20:03
0.9% Sodium Chloride 500 ml [Nss] 500 ml IV BOLUS
01/24/25 20:21
Potassium Chloride [KCl] 40 meq PO NOW STA
US Abdomen Complete/Upper Urgent
Comment:
Reason For Exam: lft abnl, anorexia
Abnormal Lab Results
01/24/25
19:08
WBC 11.8 H 10^3/uL
(4.8-10.8)
RBC 3.75 L 10^6/uL
(4.20-5.40)
Hgb 11.9 L g/dL
(12.0-16.0)
Hct 33.5 L %
(37.0-47.0)
MCH 31.7 H pg
(27.0-31.0)
Abs Immat Gran (auto) 0.1 H 10^3/uL
(0-0.05)
Absolute Neuts (auto) 7.9 H 10^3/uL
(1.4-6.5)
Absolute Monos (auto) 0.9 H 10^3/uL
(0.1-0.6)
Absolute Eos (auto) 1.5 H 10^3/uL
(0-0.7)
Lymphocytes % 12.5 L %
(20.5-51.1)
Eosinophils % 12.7 H %
(0-6)
Sodium 130 L mmol/L
(135-145)
Potassium 3.3 L mmol/L
(3.5-5.1)
Chloride 91 L mmol/L
(98-107)
Glucose 151 H mg/dl
(70-99)
Total Bilirubin 1.9 H mg/dl
(0.2-1.3)
AST 450 H U/L
(14-36)
ALT 327 H U/L
(0-35)
Alkaline Phosphatase 711 H U/L
(38-126)
01/24/25 19:08
01/24/25 19:08
Vital Signs
Initial and Last Documented VS:
Initial Vital Signs
Temp Pulse Resp BP Pulse Ox
97.6 F 76 18 141/67 100
01/24/25 18:24 01/24/25 18:24 01/24/25 18:24 01/24/25 18:24 01/24/25 18:24
Last Documented Vital Signs
Temp Pulse Resp BP Pulse Ox
97.6 F 63 22 151/78 100
01/24/25 18:24 01/24/25 19:51 01/24/25 19:51 01/24/25 19:51 01/24/25 19:51
*Critical Care Note
Total Time (30-74mins, 75-104mins- exclusive of procedures): Not Applicable
Update Note
Update Note:
Patient presents to the Emergency Department with ___reported tachycardia in cardiac rehab associated lightheadedness
Number and Complexity of Problems Addressed at the Encounter
� Chronic conditions affecting care:
� Acute Exacerbation and/or Progression of Chronic Illness:
� Differential Diagnosis includes: But not limited to dehydration, electrolyte abnormality, arrhythmia/A-fib/a flutter/SVT, etc. etc.
Amount and/or Complexity of Data to be Reviewed and Analyzed
� I performed an independent evaluation of and my interpretation is:
EKG: Read by me, normal sinus rhythm, normal rate, Q waves seen septal, no acute ischemia
CT:
Xrays: Chest x-ray NAD
Laboratory Studies: Reviewed by me, mild leukocytosis, mild worsening of baseline anemia, mild hypokalemia, mild hyponatremia and hyper chloremia, no acidosis, renal function normal. New LFT abnormalities.
Other:US Cholelithiasis, but no secondary sonographic findings to suggest acute cholecystitis. (Of note, no n/v/abd pain/fever etc on my exam to suggest cholecystitis).
� Review of other/old records reveals: Reviewed summary from patient's hospitalization, patient had her RCA stented, presented with heart failure with reduced ejection fraction.
� Clinical information was obtained by an independent historian: Partner who is bedside
� Prescriptions/Medications Considered but not given:
� Further testing considered but not performed:
Risk of Complications and/or Morbidity or Mortality of Patient Management
� Social determinants of health affecting care:
� Discussion with other providers (PCP, Hospitalists, Consultants, etc):
� Escalation of care including admission/observation vs risk of discharge considered: Prolonged observation here, patient remains asymptomatic. I do suspect patient has chronic illness, appears somewhat malnourished and was mild
to moderately dehydrated here. However, no acute issues identified warranting hospitalization. Case discussed with cardiology, aware of labs, history, physical etc. Agrees with plan for discharge with close follow-up. Of note, patient has
incidental cholelithiasis associated with mild LFT abnormalities. She was made aware and instructed to follow-up accordingly and given copy of her report.
ED Attending Note
-
Portions of this chart may have been created with voice recognition software.� Occasional wrong word or��sound alike� substitutions may have occurred due to the inherent limitations of voice recognition software.
Discharge Plan
Departure
Patient Disposition: Home (Routine Discharge)
Date of Disposition: 01/24/25
Time of Disposition: 22:24
Patient with high blood pressure during this ER visit?: Yes
Condition: Good
Discharge Problem:
Cholelithiasis, svt
Instructions: Supraventricular tachycardia (SVT), Dehydration in adults - ED discharge instructions, BLOOD PRESSURE
Prescriptions:
No Action
Brilinta 90 mg Tablet
90 mg PO BID Qty: 180 3RF
dapagliflozin propanediol 10 mg Tablet
10 mg PO DAILY Qty: 90 3RF
atorvastatin 80 mg Tablet
80 mg PO QPM Qty: 90 3RF
aspirin 81 mg Tablet,Chewable
81 mg PO DAILY Qty: 1 0RF
nitroglycerin 0.4 mg Tablet, Sublingual
0.4 mg sublingual [id number] PRN (Reason: chest pain or SBP > 150 mmHg) Qty: 20 3RF
metoprolol succinate 25 mg Tablet Extended Release 24 Hr
25 mg PO DAILY Qty: 90 3RF
furosemide 40 mg Tablet
40 mg PO DAILY Qty: 90 5RF
potassium chloride 20 mEq Tablet,Er Particles/Crystals
40 meq PO DAILY Qty: 90 5RF
Referrals:
Jermaine Corona DO [Active] - Follow up in 2-3 days
UNKNOWN - PT DOES,NOT KNOW [Family Provider] -
Activity Restrictions/Additional Instructions:
IF YOU DEVELOP CHEST PAIN, PALPITATIONS, DIZZINESS, FEVER, TROUBLE BREATHING, OR OTHER WORRISOME SIGNS, GO TO THE ER IMMEDIATELy! YOU HAVE GALLSTONES AND ABNORMALITIES OF YOUR LIVER FUNCTIN TESTS, WHICH REQUIRES CLOSE FOLLOW UP. sEE ATTACHED.
Interventions
Interventions:
*Risk Screen - Suicide Last Done: 01/24/25 18:24
*General Assessment Last Done: 01/24/25 19:55
*Neglect/Abuse Screening Last Done: 01/24/25 18:24
*ED- Fall Risk Assessment Last Done: 01/24/25 19:55
*ED COVID-19 Vaccine History Last Done: 01/24/25 19:55
ED- Cardiac Assessment Last Done: 01/24/25 19:51
ED- Pulmonary Assessment Last Done: 01/24/25 19:52
Discharge Date and Time
Print Language: [id number]
[2025-01-24] MEDS: KCL 40 MEQ PO (21:02)
[2025-01-24 21:03] VITALS: BP 138/115
[2025-01-24 22:00] VITALS: BP 133/64
== END 2025-01-24 22:33 | disposition home or self-care (01) ==
LOC: EMR 18:21
PROVIDERS: EMERGENCY PHYSICIAN Emergency Medicine
DX: K80.20 Calculus of gallbladder without cholecystitis without obstruction (principal); I47.10 Supraventricular tachycardia, unspecified; I25.10 Atherosclerotic heart disease of native coronary artery without angina pectoris; I11.0 Hypertensive heart disease with heart failure; I50.9 Heart failure, unspecified; Z95.5 Presence of coronary angioplasty implant and graft; Z86.718 Personal history of other venous thrombosis and embolism; Z85.43 Personal history of malignant neoplasm of ovary
CPT/HCPCS: 71046; 76700; 80053; 83880; 84484; 85025; 93005; 96360; 99284

== ENCOUNTER 2025-02-26 18:00 | Outpatient (RCR) | payer OTHER, SELFPAY | END 2025-02-26 23:59 | disposition home or self-care (01) | LOC: CRHB 18:00 | PROVIDERS: ATTENDING PHYSICIAN Internal Medicine Cardiovascular Disease | DX: I21.4 Non-ST elevation (NSTEMI) myocardial infarction (principal); Z95.5 Presence of coronary angioplasty implant and graft; I25.2 Old myocardial infarction; I25.10 Atherosclerotic heart disease of native coronary artery without angina pectoris | CPT/HCPCS: 93797; 93798 ==

== ENCOUNTER 2025-02-26 22:05 | Inpatient (IN) | payer OTHER, SELFPAY ==
[2025-02-26] VITALS (13 sets, daily range): BP systolic 98–153; BP diastolic 55–102; BMI 18.3; BMI 17.9
[2025-02-26 18:41] LABS: % Basophils 0.6 % (0-2); % Eosinophils 1.9 % (0-6); % Immature Granulocytes 0.2 % (0-0.5); % Lymphocytes 20.6 % (20.5-51.1); % Monocytes 8.4 % (1.7-9.3); % Neutrophils 68.3 % (42.2-75.2); Absolute Basophils 0.1 10^3/uL (0-0.2); Absolute Eosinophils 0.2 10^3/uL (0-0.7); Absolute Lymphocytes 1.8 10^3/uL (1.2-3.4); Absolute Monocytes 0.7 10^3/uL (0.1-0.6); Hematocrit 33.2 % (37.0-47.0); Mean Corp Hgb Conc. 33.1 g/dL (33.0-37.0); Mean Corpuscular Volume 96.5 fL (81.0-99.0); Mean Platelet Volume 9.5 fL (7.4-10.4); Nucleated Red Blood Cells % 0 %; Platelet Count 262 10^3/uL (130-400); Red Blood Cell Count 3.44 10^6/uL (4.20-5.40); Red Cell Dist. Width 15.2 % (11.5-14.5); White Blood Cell Count 8.7 10^3/uL (4.8-10.8)
[2025-02-26 19:00] LABS: ALT (SGPT) 39 U/L (0-35); AST (SGOT) 40 U/L (14-36); Alkaline Phosphatase 362 U/L (38-126); Blood Urea Nitrogen 15 mg/dl (7-17); Calcium 10.6 mg/dl (8.4-10.2); Carbon Dioxide 28 mmol/L (22-30); Chloride 99 mmol/L (98-107); Estimated Creatinine Clearance 52 ml/min; Glucose 102 mg/dl (70-99); Potassium 5.8 mmol/L (3.5-5.1); Sodium 138 mmol/L (135-145); Total Bilirubin 1.5 mg/dl (0.2-1.3); Total Protein 6.7 g/dl (6.3-8.2); eGFR > 60.00
[2025-02-26 19:07] LABS: Troponin I 0.013 ng/ml
--- NOTE | 2025-02-26 19:42 | ED.GENMED ---
History of Present Illness
General
Chief Complaint: Cardiac Symptoms
Source: patient
Time Seen by Provider: 02/26/25 19:04
History of Present Illness
History of Present Illness:
70-year-old female presents to the emergency room from cardiac rehab. Patient was noted to have frequent ectopy, triplets and couplets. Patient does complain of some subjective shortness of breath. She denies any chest pain. She was recently
hospitalized with a non-ST elevation MT and had a cardiac cath which showed multivessel disease. She had multiple stents placed and staged procedures. Her EF was found to be low in the 20-25% range. Patient states she has been compliant with her
medications. She was drinking prior to her cardiac event but has not been drinking since.
Past History
Past History
ED Past Medical History: CAD, HTN and Other (Ovarian cancer, DVT, PE, heart failure with reduced ejection fraction)
ED Past Surgical History: Cardiac
Social History
Tobacco: Non-smoker
Alcohol: Former
Drug: None
Personal: Partner
Employment: Employed
Family History
Family History: CAD
Phy Exam
Physical Exam
Physical Exam:
General: Awake, Alert, Oriented X3. No acute distress. Very thin appears chronically ill
Vitals: unremarkable
Head: Atraumatic
Eyes: Pupils equal, EOMI
Throat: Airway intact, no exudates
Neck: Trachea midline
Lungs: Crackles bilateral bases
Heart: irregular rate, no murmurs
Abd: Soft, Nontender, No pulsatile mass
Neuro: Nonfocal
Skin: Warm, dry, no rash
Extremities: pulses equal b/l, 2+ edema
Course
Orders/Labs/Results
Orders:
Orders
02/26/25 Dinner
Cholesterol Lowering
At Your Request: Full Participation
Does patient need a safe tray?: No
Cholesterol Lowering: Sodium, 2 Gram
02/26/25 18:23
EKG [Electrocardiogram (*1)] Urgent
Reason for Study: Abnormal EKG
EKG- Treatment ONCE
02/26/25 18:34
Complete Blood Count/With Diff Urgent
Comprehensive Metabolic Panel Urgent
Magnesium Urgent
Comment: ADDON
Phosphorus Urgent
Comment: ADDON
Troponin I Urgent
02/26/25 19:21
Add On- LAB Urgent
Tests Added?: mag, phos
02/26/25 19:48
NT-proBNP Urgent
Potassium Urgent
02/26/25 19:54
Amiodarone [Cordarone] 150 mg Dextrose 5%/Water 100 ml [D5w] 100 ml IV NOW
02/26/25 20:00
Amiodarone [Cordarone] 900 mg DEXTROSE 5% PVC-free BAG [D5W PVC-free BAG] 500 ml IV PER PROTOCOL
Initial Dose in mg/min:: 1
Duration of initial dose (hours):: 6
Subsequent dose in mg/min:: 0.5
Duration of subsequent dose (hours):: 18
Maximum dose in mg/min:: 1
Hold and notify provider if:: Heart rate < 60 BPM or SBP < 90 mmHg or MAP < 60 mmHg
02/26/25 20:02
CR Chest Portable - 1 View Urgent
Comment:
Reason For Exam: sob
Reason Study Needs to be Portable: Patient Unstable
02/26/25 20:24
Furosemide [Lasix] 40 mg IV NOW STA
02/26/25 20:54
Admit/Transfer Patient As Directed
Co-Sign Provider:
Level of Care: Inpatient admission
Assign to:: IVU
Physician / Group: ar
Diagnosis: vtach, ectopy
Reason for Hospitalization: vtachy, ectopy
Expected length of stay greater than two midnights?: Yes
ELOS- Estimated Length of Stay in days: 2
I certify the patient meets the requirements for IP care: Yes
PRN Pain Medication Management As Directed
May give lesser potent ordered pain med per pt: Yes
preference::
Protocol:: Medication orders for pain may be administered in a
manner that supports deferring to patient preference
when the pt is:
- Requesting an ordered lesser potent pain medication.
Least to most potent pain medications are defined
as: acetaminophen < NSAID < tramadol < opioids
(morphine, oxycodone, hydromorphone).
- Requesting a lesser dose of the same medication IF
ORDERED.
- Requesting a less intrusive route of administration
if both routes are prescribed by the provider (PO <
IV).
02/26/25 20:55
Code Status As Directed
Resuscitation Status: Full Code
02/26/25 22:00
Flush (0.9% Sodium Chloride) [Flush (Nss)] See Dose Instructions IV PER PROTOCOL
02/26/25 22:37
CARDIOLOGY CONSULT Routine
Consulting Provider: Hal Early
Was physician already notified: Yes
Activity As Directed
Activity Level: As Tolerated
Vital Signs As Directed
Frequency: Per unit guidelines
DX Deep Vein Thrombosis Video Routine
02/27/25 Breakfast
NPO
Allow oral meds: Yes
Allow clear liquids: Sips of Clears
Complete Blood Count/With Diff IN AM
Comprehensive Metabolic Panel IN AM
02/27/25 08:00
Aspirin Chewable [Low Strength Aspirin] 81 mg PO DAILY
Clopidogrel Bisulfate [Plavix] 75 mg PO DAILY
Dapagliflozin [Farxiga] 10 mg PO DAILY
Furosemide [Lasix] 40 mg PO DAILY
Heparin 5,000 units SC Q12
Metoprolol Xl [Toprol Xl] 25 mg PO BID
Potassium Chloride [KCl] 20 meq PO DAILY
02/27/25 18:00
Atorvastatin [Lipitor] 80 mg PO QPM
Abnormal Lab Results
02/26/25
18:34
RBC 3.44 L 10^6/uL
(4.20-5.40)
Hgb 11.0 L g/dL
(12.0-16.0)
Hct 33.2 L %
(37.0-47.0)
MCH 32.0 H pg
(27.0-31.0)
RDW 15.2 H %
(11.5-14.5)
Absolute Monos (auto) 0.7 H 10^3/uL
(0.1-0.6)
Potassium 5.8 H mmol/L
(3.5-5.1)
Glucose 102 H mg/dl
(70-99)
Calcium 10.6 H mg/dl
(8.4-10.2)
Total Bilirubin 1.5 H mg/dl
(0.2-1.3)
AST 40 H U/L
(14-36)
ALT 39 H U/L
(0-35)
Alkaline Phosphatase 362 H U/L
(38-126)
02/26/25 18:34
02/26/25 19:48
Vital Signs
Initial and Last Documented VS:
Initial Vital Signs
Temp Pulse Resp BP Pulse Ox
98.3 F 44 20 153/94 99
02/26/25 18:21 02/26/25 18:21 02/26/25 18:21 02/26/25 18:21 02/26/25 18:21
Last Documented Vital Signs
Temp Pulse Resp BP Pulse Ox
97.9 F 50 18 142/96 97
02/26/25 23:03 02/26/25 23:30 02/26/25 23:03 02/26/25 22:47 02/26/25 23:03
MDM/Problems Addressed
Differential Diagnosis Includes:
Electrolyte abnormality, ischemia, ventricular dysrhythmia from scar from recent NSTEMI
MDM/Problems Addressed:
Patient presents with significant ectopy and short runs of V. tach. Discussed patient's presentation with Dr. Em who is on-call for the patient's cardiology group. Recommends Amio for tonight, n.p.o. after midnight, diuresis
*Radiology
Radiology exam reviewed: preliminary read by ED provider (Unchanged from previous chest x-ray)
*Pulse Oximetry
Patient hypoxic: no
*EKG
Interpreted by ED Provider?: Yes
Interpretation: abnormal
Heart Rate: 100
Rate: normal
Rhythm: sinus and other (Frequent PVCs, triplets and couplets)
Artemas: normal axis
Interval: normal interval
*Electrical Automation Engineer Interpretation
Rate: normal
Interpretation: abnormal
Rhythm: sinus and other (Frequent ventricular ectopy)
*Critical Care Note
Total Time (30-74mins, 75-104mins- exclusive of procedures): 32 min
comment:
Critical care statement: A total of 32 minutes of critical care time was provided for this patient. This includes management of unstable vital signs, evaluation of the patient at bedside, reviewing the patient's pertinent medical records, discussion
with consultants, review of old EKGs and review of pertinent medical records. This time with separate from time utilized to perform the aforementioned documented procedures
ED Attending Note
-
Portions of this chart may have been created with voice recognition software.� Occasional wrong word or��sound alike� substitutions may have occurred due to the inherent limitations of voice recognition software.
Discharge Plan
Departure
Patient Disposition: Admit
Date of Disposition: 02/26/25
Time of Disposition: 20:33
Admit to: IVU
Presentation/result/management discussed w/ accepting MD/DO: Hospitalist
Condition: Serious
Discharge Problem:
Ventricular tachycardia, CHF (congestive heart failure)
Interventions
Interventions:
*Risk Screen - Suicide Last Done: 02/26/25 18:21
*General Assessment Last Done: 02/26/25 18:54
*Neglect/Abuse Screening Last Done: 02/26/25 18:21
*ED- Fall Risk Assessment Last Done: 02/26/25 18:54
*ED COVID-19 Vaccine History Last Done: 02/26/25 18:54
*Nursing Disposition Last Done: 02/26/25 22:49
ED- Pulmonary Assessment Last Done: 02/26/25 18:54
ED- Cardiac Assessment Last Done: 02/26/25 18:54
Discharge Date and Time
Discharge Date/Time: 02/26/25 22:49
[2025-02-26 19:54] LABS: Magnesium 2.1 mg/dl (1.6-2.3); Phosphorus 3.9 mg/dl (2.5-4.5)
[2025-02-26 20:13] LABS: Potassium 3.7 mmol/L (3.5-5.1)
[2025-02-26 20:22] LABS: NT-proBNP 4140 pg/ml
[2025-02-26] MEDS: CORDARONE 103 MG IV (20:25)
[2025-02-26] MEDS: LASIX 40 MG IV (20:48)
[2025-02-26] MEDS: CORDARONE 518 MG IV (20:56)
--- NOTE | 2025-02-26 20:58 | HPS.HSE ---
Family Physician
-
Family Physician: Arron Gale MD
Chief Complaint
-
ectopy
History of Present Illness
70-year-old female past medical history of NSTEMI, ischemic cardiomyopathy with EF of 25 to 30%, hypertension, ovarian cancer complicated by DVT/pulmonary embolism, presenting from cardiac rehab. Patient was noted to have frequent ectopy, triplets
and couplets while on the treadmill there. She denies any symptoms. Denies any chest pain or shortness of breath or dizziness.
She was recently hospitalized for NSTEMI and had cardiac catheterization which showed multivessel disease. She had multiple stents placed.
She has a history of intermittent dizziness has been going on for a long time even before she had NSTEMI. She has occasional intermittent shortness of breath which is also not new. She denies any weight gain. She lost a lot of weight after her
catheterization her weight has been stable. She noted some trace edema in her legs today.
She is a former smoker. She used to drink alcohol daily but no longer drinks alcohol.
Medical History
Past Medical History
Past Medical History: Reports Other (NSTEMI, ischemic cardiomyopathy with EF of 25 to 30%, hypertension, ovarian cancer complicated by DVT/pulmonary embolism)
Past Surgical History: Reports None
Social History
Tobacco: Former Smoker
Alcohol: Former
Drug: None
Family History
Family History: Not pertinent
Allergies / Home Medications
Allergies reflects when Allergies were last updated in [employer].
Home Medications with original date entered in [employer]
Allergy/Medication List:
Allergies
Allergy/AdvReac Type Severity Reaction Status Date / Time
paclitaxel Allergy Unknown Verified 02/26/25 18:21
Penicillins Allergy PASSED OUT Verified 02/26/25 18:21
'happened
in 2nd
grade'
Home Medications
aspirin 81 mg chewable tablet 81 mg PO DAILY #1 tab 12/17/24
atorvastatin 80 mg tablet 80 mg PO QPM #90 tabs 12/17/24
dapagliflozin propanediol 10 mg tablet 10 mg PO DAILY #90 tabs 12/17/24
furosemide 40 mg tablet 40 mg PO DAILY #90 tabs 12/20/24
clopidogrel 75 mg tablet (Plavix) 75 mg PO DAILY 02/26/25
metoprolol succinate 25 mg tablet,extended release 24 hr 25 mg PO BID 02/26/25
potassium chloride 20 mEq tablet,extended release(part/cryst) 20 meq PO DAILY 02/26/25
Review of Systems
-
History Source: Patient
A 12 point ROS was completed and negative except as noted: Yes
Constitutional: Reports No Symptoms
EENT: Reports No Symptoms
Respiratory: Reports No Symptoms
Cardiac: Reports No Symptoms
Abdomen/GI: Reports No Symptoms
: Reports No Symptoms
Musculoskeletal: Reports No Symptoms
Skin: Reports No Symptoms
Neurological: Reports No Symptoms
Endocrine: Reports No Symptoms
Hematologic/Lymphatic: Reports No Symptoms
Psych: Reports No Symptoms
Physical Exam
Vital Signs
Vital Signs
Temp Pulse Resp BP Pulse Ox
98.3 F 90 14 148/102 100
02/26/25 18:21 02/26/25 20:48 02/26/25 20:30 02/26/25 20:48 02/26/25 20:30
Physical Exam
General: Well Developed, Well Nourished and No Apparent Distress
HEENT: NormoCephalic, Moist mucous membranes and Atraumatic
Respiratory: Clear
Cardiac: S1/S2 and Regular Rhythm; No Murmur or Rub
GI: Soft, Non Tender, Non Distended and Normal Bowel Sounds; No Organomegaly
Rectal: Deferred by Provider
Musculoskeletal: No Clubbing, No Cyanosis and No Edema
Skin: No Rash
Neuro: Nonfocal/grossly intact
Laboratory Results
-
02/26/25 18:34
02/26/25 19:48
Laboratory Results
Total Bilirubin 1.5 mg/dl (0.2-1.3) H 02/26/25 18:34
AST 40 U/L (14-36) H 02/26/25 18:34
ALT 39 U/L (0-35) H 02/26/25 18:34
Alkaline Phosphatase 362 U/L (38-126) H 02/26/25 18:34
Troponin I 0.013 ng/ml 02/26/25 18:34
Data Reviewed
-
Lab Data: Labs Reviewed by me
Old Records: Reviewed
Impression/Plan
-
IMPRESSION:
PLAN:
# Ectopy/V. tach runs
- EKG shows sinus rhythm with frequent PVCs
- Cardiology recommended amiodarone drip and possible catheterization tomorrow
- N.p.o. past midnight
# Possible slight volume overload
# Ischemic cardiomyopathy/HFrEF
- Cardiac BNP 4000
- Chest x-ray shows no acute cardiopulmonary process
- 40 IV Lasix given, continue 40 oral daily
-Continue dapagliflozin
# Hyperkalemia
- Improved on second BMP
- Resume potassium
# Mild transaminitis
- Could be secondary to venous congestion from CHF
History of NSTEMI
- Continue aspirin, Plavix, statin
- Continue metoprolol
Essential hypertension
Ovarian cancer status post hysterectomy
History of DVT/PE
Full code
DVT prophylaxis�heparin
Cardiac diet
[2025-02-27] VITALS (19 sets, daily range): BP systolic 86–141; BP diastolic 43–81; BMI 17.9
--- NOTE | 2025-02-27 00:16 | PTCARENOTE ---
Received patient from ED. SR on the monitor with PVCs, HR in the 60s, asymptomatic. VSS on room air. Pt alert and oriented. Oriented pt to room. NPO at midnight. HR sustaining in 50s. Amio on hold as per protocol, DEEP Ascencio notified, No complaints
from pt at this time, call warren within reach.
--- NOTE | 2025-02-27 04:44 | PTCARENOTE ---
Patients HR stayed in 50-60s with very little PVCs until 04:10. HR in the 90-100s with a lot of PVC triplets. Patient is asymptomatic. BP 141/52. AGED OR DISABLED CARER Kelsie Ascencio notified, Amio restarted as per AGED OR DISABLED CARER.
[2025-02-27 04:49] LABS: % Basophils 0.5 % (0-2); % Eosinophils 2.3 % (0-6); % Immature Granulocytes 0.4 % (0-0.5); % Lymphocytes 17.9 % (20.5-51.1); % Monocytes 8.5 % (1.7-9.3); % Neutrophils 70.4 % (42.2-75.2); Absolute Eosinophils 0.2 10^3/uL (0-0.7); Absolute Lymphocytes 1.4 10^3/uL (1.2-3.4); Absolute Monocytes 0.7 10^3/uL (0.1-0.6); Absolute Neutrophils 5.6 10^3/uL (1.4-6.5); Hematocrit 31.6 % (37.0-47.0); Hemoglobin 10.4 g/dL (12.0-16.0); Mean Corp Hgb Conc. 32.9 g/dL (33.0-37.0); Mean Platelet Volume 9.6 fL (7.4-10.4); Nucleated Red Blood Cells % 0 %; Platelet Count 256 10^3/uL (130-400); Red Blood Cell Count 3.36 10^6/uL (4.20-5.40); White Blood Cell Count 7.9 10^3/uL (4.8-10.8)
[2025-02-27 05:18] LABS: ALT (SGPT) 36 U/L (0-35); AST (SGOT) 44 U/L (14-36); Albumin 3.7 g/dl (3.5-5.0); Alkaline Phosphatase 320 U/L (38-126); Blood Urea Nitrogen 16 mg/dl (7-17); Calcium 9.4 mg/dl (8.4-10.2); Carbon Dioxide 27 mmol/L (22-30); Chloride 103 mmol/L (98-107); Estimated Creatinine Clearance 58 ml/min; Glucose 84 mg/dl (70-99); Potassium 4.1 mmol/L (3.5-5.1); Sodium 139 mmol/L (135-145); Total Bilirubin 1.4 mg/dl (0.2-1.3); Total Protein 6.4 g/dl (6.3-8.2); eGFR > 60.00
--- NOTE | 2025-02-27 08:02 | CON.CAR ---
Consultation
Consultation Request
Date/Time Consultation Requested: 02/26/257
Date/Time Consultation Performed: 02/27/25 0802
Requesting Provider: Dr. Barger
Performing Provider: Yamileth PETERSON for Dr. Early
Reason for Consultation: NSVT
Medical History
-
Chief Complaint: Arrhythmia
History of Present Illness:
70 y/o female (patient of Dr. Corona) with hypertension, remote ovarian cancer complicated by DVT/PE, complex CAD/SD with multiple stents 12/2024, ICM EF 25-30%, dyslipidemia, atrial tachycardia who is here since frequent NSVT was noted in cardiac
rehab. She is admitted and started on amiodarone drip. Still with NSVT runs at times. Currently SB on monitor. She is not symptomatic. Denies palpitations, syncope, CP. She is in no distress at time of my assessment.
Past Medical History
Past Medical History: Arrhythmias, CAD, Cancer, HTN and Hypercholesterolemia
Social History
Tobacco: Non-Smoker
Alcohol: None (used to drink beer, stopped at time of SD)
Family History
Family History: CAD (dad of SD age 59)
Allergies / Home Medications
Allergy/AdvReac Type Severity Reaction Status Date / Time
paclitaxel Allergy Unknown Verified 02/26/25 18:21
Penicillins Allergy PASSED OUT Verified 02/26/25 18:21
'happened
in 2nd
grade'
�Medication �Instructions �Recorded �Confirmed �Type
aspirin 81 mg chewable tablet 81 mg PO DAILY #1 tab 12/17/24 02/26/25 Rx
atorvastatin 80 mg tablet 80 mg PO QPM #90 tabs 12/17/24 02/26/25 Rx
dapagliflozin propanediol 10 mg 10 mg PO DAILY #90 tabs 12/17/24 02/26/25 Rx
tablet
furosemide 40 mg tablet 40 mg PO DAILY #90 tabs 12/20/24 02/26/25 Rx
clopidogrel 75 mg tablet (Plavix) 75 mg PO DAILY 02/26/25 02/26/25 History
metoprolol succinate 25 mg 25 mg PO BID 02/26/25 02/26/25 History
tablet,extended release 24 hr
potassium chloride 20 mEq 20 meq PO DAILY 02/26/25 02/26/25 History
tablet,extended release(part/cryst)
Review of Systems
-
History Source: Patient
All other systems: Negative unless noted (no symptoms feeling fine. Sometimes hard to get a deep breath, but that is not a new issue (chronic))
Physical Exam
Vital Signs
Temp Pulse Resp BP Pulse Ox
98.2 F 99 14 141/52 99
02/27/25 07:07 02/27/25 04:45 02/27/25 07:07 02/27/25 04:23 02/27/25 07:07
Lab Results
02/27/25 04:34
02/27/25 04:34
Troponin I 0.013 ng/ml 02/26/25 18:34
Qdt-Q-Teyxlkhbzqt Pept 4140 pg/ml 02/26/25 19:48
Physical Exam
General: Well Developed and No Apparent Distress
HEENT: Normocephalic and Anicteric
Respiratory: Clear and Non Labored Respirations
Cardiac: Regular Rhythm
Musculoskeletal: No Edema
Skin: Warm and Dry
Neuro: AO x 3
Psych: Calm
Impression / Plan
-
NSVT, frequent runs:
-asymptomatic, mag and K+ fine today. K+ elevated on arrival.
-continue IV amiodarone, which requires intensive monitoring. On metoprolol.
-cardiac cath today to assess her complex CAD for potential contributing lesion
-likely ICD prior to d/c- discussed with patient
-update echo
CAD, complex:
-multiple recent stents as below (12/2024 and 01/2025)
-continue ASA, plavix
-no CP
-trop unremarkable
Abnormal LFT's:
-does not drink ETOH anymore
-follow
ICM EF 25-30%:
-does not appear volume overloaded to assessment
-on Farxiga and metoprolol. GDMT has been limited by BP, but BP okay here so may be able to add on GDMT. Cath first.
Cardiac cath:
12/17/24: Right dominant circulation with a 75% lesion in the midportion of the small RCA, a densely calcified, 60% lesion in the proximal circumflex, a densely calcified, long, 70% lesion in the mid LAD, a densely calcified 90% lesion in the
proximal/mid LAD around the origin of the master septal arcade and a culprit, 95% lesion in the ostial/proximal LAD, status post successful IVUS guided intracoronary lithotripsy and PCI of the ostial/proximal/mid LAD lesions, with reduction in the
ostial/proximal and mid LAD lesions to 0% and the proximal/mid LAD lesion to 20%, restoring CARLA-3 flow.
2. Severely elevated filling pressures (LVEDP = 29 mmHg at 60.4 kg).
12/19/24: 1. Right dominant circulation with a known 75% lesion in the mid RCA, a 50% lesion in the ostium of the circumflex, and occlusive, densely calcified 60% proximal circumflex lesion status post successful intracoronary lithotripsy (shockwave
3.0 x 12 lithotripsy balloon) and IVUS guided PCI ([employer] Braden frontier 3.0 x 18 DENISE, postdilated with a 3.0 NC balloon throughout and a 3.25 NC balloon in the proximal margin) with reduction in stenosis to 0%, maintaining CARLA-3 flow, patent
stents in the proximal and mid LAD with a 50%, densely calcified, stented mid LAD lesion status post successful post hoc intracoronary lithotripsy (shockwave 3.0 x 12 lithotripsy balloon) and percutaneous transluminal angioplasty (3.25 x 12 NC
balloon to 18 tang) with reduction in stenosis to 20-30%, maintaining CARLA-3 flow.
2. Severely elevated filling pressures (LVEDP = 24 mmHg at 53.1 kg) with evidence of diastolic dysfunction (A wave to 35 mmHg).
01/06/25: 1. Right dominant circulation with prior PCI to the LAD and circumflex and residual RCA disease, now status post successful PCI of a 70% mid RCA lesion ([employer]onic Braden Goodman 2.0 x 22 DENISE, postdilated with a 2.0 NC balloon) and an
underappreciated, densely calcified 80% ostial RCA lesion ([employer] Braden Goodman 2.25 x 12 DENISE, postdilated with a 2.5 NC balloon to 20 tang) with reduction in stenosis of both stenoses to 0%, maintaining CARLA-3 flow.
2. Normal filling pressures (LVEDP = 6 mmHg at 61.0 kg).
Data Reviewed
-
EKG: Tracing Personally Visualized and interpreted (SR with frequent and consecutive PVC's (couplets, triplets))
Radiology: Report Reviewed by me (CXR: No acute cardiopulmonary process.)
Medical Tests (Nuc Med, Echo etc): Report Reviewed by me (echo 12/17/24: Severely reduced left ventricular systolic function. Left ventricular ejection fraction is 25-30%. LAD regional wall motion abnormality. Normal right ventricular size.
Normal right ventricular systolic function. Mitral valve opens normally. Moderate mitral regurgitation. )
Labs: Labs Reviewed by me
[2025-02-27] MEDS: FARXIGA 10 MG PO (09:04)
[2025-02-27] MEDS: LOW STRENGTH ASPIRIN 81 MG PO (09:04)
[2025-02-27] MEDS: KCL 20 MEQ PO (09:05)
[2025-02-27] MEDS: LASIX 40 MG PO (09:05)
[2025-02-27] MEDS: HEPARIN 5000 UNITS SC ×2 (09:07→20:20)
[2025-02-27] MEDS: PLAVIX 75 MG PO (09:10)
[2025-02-27] MEDS: TOPROL XL 25 MG PO ×2 (09:12→21:25)
--- NOTE | 2025-02-27 09:15 | CM ---
Reviewed chart. Met with Ms. Watkins to review discharge plans. She states prior to admission she resides with her significant other in a second floor walk-up apartment. She states she has a full flight of steps to get into the apartment. She
states prior to admission she was independent with ambulation and adls. She states she does not have any DME in the home. She states she has a prescription plan and uses [facility]. Medical work-up in progress. The discharge plan is to return
home with her significant other when medically stable.
--- NOTE | 2025-02-27 10:10 | W.PN.HOSP.TC ---
Today's Communication/Plan
-
see outlined plan below
Assessment / Plan
Assessment / Plan
Assessment:
NSVT and ectopy
- EKG with PVCs
- keep K >4 and Mag >2
- monitor on tele
- IV Amiodarone started - requires intensive monitoring for drug toxicity
- CBC cards following
- Cardiac cath planned today and likely will need ICD
- Echo pending
mild acute on chronic HFrEF (Ischemic cardiomyopathy)
- CXR without pulm edema
- s/p IV Lasix x 1; now back on oral Lasix and comfortable
- monitor I/Os, weights, lytes
- GDMT: Farxiga/BB. Consider additions as able (previously limited by BP)
CAD
Hx of NSTEMI
- hx of stenting 12/31 and 01/28
- Cardiac cath planned today
- continue ASA/Plavix/BB
- chest pain free
- trop negative
Hyperkalemia
- resolved
- continue oral K and keep K >4 and Mag >2
Mild transaminitis
- Could be secondary to venous congestion from CHF
- monitor
- no abd pain
Essential hypertension
Ovarian cancer status post hysterectomy
History of DVT/PE
DVT ppx: SC heparin
Code: Full
Anticipated Discharge: > 48 hours
Subjective/Interval History
-
Date of Service: February 27, 2025
resting comfortably, no complaints such as chest pain or SOB
remains on IV Amiodarone
Objective Data
-
Labs:
Laboratory Results
02/27/25
04:34
WBC 7.9
Hgb 10.4 L
Hct 31.6 L
Plt Count 256
Sodium 139
Potassium 4.1
Chloride 103
Carbon Dioxide 27
BUN 16
Creatinine 0.7
Glucose 84
Calcium 9.4
Total Bilirubin 1.4 H
AST 44 H
ALT 36 H
Alkaline Phosphatase 320 H
Vital Signs:
Vital Signs
Temp Pulse Resp BP Pulse Ox
98.2 F 99 14 141/52 99
02/27/25 07:07 02/27/25 04:45 02/27/25 07:07 02/27/25 04:23 02/27/25 07:07
Physical Exam
-
General: No Apparent Distress
HEENT: Normocephalic and Atraumatic
Respiratory: Negative Wheezes
Cardiac: Regular Rhythm and S1/S2
GI: Soft
Neuro: AO x 3
Psych: Calm
Data Reviewed
-
Total Time Spent with Patient (in minutes): 51
Labs: Labs Reviewed by me
[2025-02-27] MEDS: NSS 1000 IV (16:55)
[2025-02-27] MEDS: LIPITOR 80 MG PO (16:55)
--- NOTE | 2025-02-27 17:42 | ITS.CL.PN ---
School Athletic Director - Procedure Note
Procedure
Procedure Note:
CARDIAC CATHETERIZATION REPORT
Date of Procedure: 02/27/2025
Referring: Dr. Hal Early MD
Indication: NSVT
PROCEDURE(S)
1. left heart catheterization
2. coronary angiography
ACCESS: 6F right radial artery (closure: radial band)
CATHETERS
1. 6F JR4
2. 6F JL3.5
MODERATE SEDATION: 25 minutes of moderate sedation was utilized. An independent infertility medical assistant was present to assist with and help manage the patient's level of consciousness and physiologic status.
HEMODYNAMIC DATA
LV 145/8 (EDP 14) mmHg
AO 139/70 (mean 90) mmHg
CORONARY ANGIOGRAPHY
Dominance: Right
LM: Large, normal
LAD: Large vessel giving rise to several small diagonal branches. There are widely patent stents in the proximal to mid LAD and no obstructive lesions.
LCx: Large caliber vessel giving rise to a large branching OM1. There is a widely patent stent in the proximal circumflex. There is diffuse mild to moderate disease but no obstructive lesions.
RCA: Small vessel giving rise to a small RPDA and small RPL branch. Stents in the proximal and mid vessel are widely patent. There is a 50% focal stenosis distal to the proximal stent that is unchanged in appearance from prior angiography.
RADIATION: dose 165 mGy; DAP 7.77 Gy*cm2; fluoroscopy time 3.8 min
CONCLUSIONS
1. Coronary artery disease status post three-vessel PCI as described with patent stents and no obstructive disease.
2. Mildly elevated LV filling pressure and no aortic stenosis
RECOMMENDATIONS
1. Transition from IV to oral amio
2. Ongoing discussions regarding timing of ICD placement
Copy to: Dr. Kole Corona MD (maintenance data analyst); Dr Wen Evans MD (PCP)
Signed: Fito Solis MD, PhD
--- NOTE | 2025-02-27 17:48 | PTCARENOTE ---
Pt received post cath at 1650. Right rad band intact and WNL. Pt on room air, sat 98%. Denies any pain or discomfort.
--- NOTE | 2025-02-27 20:15 | PTCARENOTE ---
Resumed care on pt, aaox3, resting in bed with no complaints of pain or SOB, right R-band intact, no swelling or bruising noted, good pulses. amio gtt infusing and will be stopped at this time to resume po amiodorone as per order. Pt SB w/ pvc's on
the tele monitor, HR mid 50's. BP 90/50's, asymptomatic. Pt ambulated to bathroom with assist x1, assisted w/ HS care, urinating without any issues. Call warren within reach, POC ongoing.
[2025-02-27] MEDS: PACERONE 400 MG PO (20:20)
[2025-02-28] VITALS (16 sets, daily range): BP systolic 89–138; BP diastolic 46–91; BMI 17.0
[2025-02-28 04:19] LABS: Hematocrit 28.9 % (37.0-47.0); Hemoglobin 9.8 g/dL (12.0-16.0); Mean Corp Hgb Conc. 33.9 g/dL (33.0-37.0); Mean Corpuscular Hgb 31.9 pg (27.0-31.0); Mean Corpuscular Volume 94.1 fL (81.0-99.0); Mean Platelet Volume 9.7 fL (7.4-10.4); Platelet Count 242 10^3/uL (130-400); Red Blood Cell Count 3.07 10^6/uL (4.20-5.40); Red Cell Dist. Width 15.2 % (11.5-14.5); White Blood Cell Count 9.3 10^3/uL (4.8-10.8)
[2025-02-28 04:47] LABS: ALT (SGPT) 32 U/L (0-35); AST (SGOT) 31 U/L (14-36); Albumin 3.5 g/dl (3.5-5.0); Alkaline Phosphatase 316 U/L (38-126); Blood Urea Nitrogen 17 mg/dl (7-17); Calcium 9.1 mg/dl (8.4-10.2); Carbon Dioxide 25 mmol/L (22-30); Chloride 105 mmol/L (98-107); Estimated Creatinine Clearance 55 ml/min; Glucose 82 mg/dl (70-99); Potassium 3.9 mmol/L (3.5-5.1); Sodium 139 mmol/L (135-145); Total Bilirubin 1.2 mg/dl (0.2-1.3); Total Protein 5.8 g/dl (6.3-8.2); eGFR > 60.00
--- NOTE | 2025-02-28 04:49 | PTCARENOTE ---
Pt slept well through the night, denies pain or sob, sinus michelle on the monitor with HR 40-50's, no ectopic heartbeats noted on review. R radial dsg CDI, good radial pulses. Ambulated to the bathroom with assist x1, no issues with urination. Call
warren within reach.
[2025-02-28] MEDS: KCL 20 MEQ PO (08:55)
[2025-02-28] MEDS: PACERONE 400 MG PO ×2 (08:55→20:27)
[2025-02-28] MEDS: FARXIGA 10 MG PO (08:55)
[2025-02-28] MEDS: LASIX 40 MG PO (08:55)
[2025-02-28] MEDS: LOW STRENGTH ASPIRIN 81 MG PO (08:56)
[2025-02-28] MEDS: PLAVIX 75 MG PO (08:56)
[2025-02-28] MEDS: HEPARIN 5000 UNITS SC ×2 (08:56→20:27)
--- NOTE | 2025-02-28 09:28 | PTCARENOTE ---
Rec'd pt this shift awake and alert. Pt SB on monitor. Pt ambulating in room and in hallway without difficulty. AM meds given. Pt NPO. See worklist for VS/I and O and assessments.
[2025-02-28] MEDS: TOPROL XL PO (09:41)
--- NOTE | 2025-02-28 10:20 | CM ---
Reviewed chart. Met with Ms. Watkins to review discharge plans. She states she is getting a defibrillator today. She states she has been ambulating in the room. Prior to admission she resides with her significant other in a second floor walk-up
apartment. She has a full flight of steps to get to her apartment. Prior to admission she was independent with ambulation and adls. She does not have any DME in the home. She has a prescription plan and uses [facility]. Medical work-up in
progress. The discharge plan is to return home with her significant other when medically stable.
--- NOTE | 2025-02-28 10:27 | W.PN.HOSP.TC ---
Today's Communication/Plan
-
possible ICD placement today; follow cards recs
continue Amiodarone
Assessment / Plan
Assessment / Plan
Assessment:
NSVT and ectopy
- EKG with PVCs
- keep K >4 and Mag >2
- monitor on tele
- continue oral Amiodarone
- CBC cards following
- s/p [facility] 02/27: Coronary artery disease status post three-vessel PCI as described with patent stents and no obstructive disease. Mildly elevated LV filling pressure and no aortic stenosis
- Echo: Normal LV size with low normal systolic function. LVEF is 50-55% by visual estimation. No obvious wall motion abnormality. Normal right ventricular size and function. Mild mitral regurgitation. Estimated pulmonary artery pressure of 15-20
mmHg assuming a right atrial pressure of 3 mmHg. Compared to prior from December 17, 2024, on [id number] comparison LV function is now low normal estimated at 50-55%, previously severely reduced at approximately 25-30%.
- possible ICD placement today
mild acute on chronic HFrEF (Ischemic cardiomyopathy)
- CXR without pulm edema
- s/p IV Lasix x 1; now back on oral Lasix and comfortable
- monitor I/Os, weights, lytes
- GDMT: Farxiga/BB. Consider additions as able (previously limited by BP)
CAD
Hx of NSTEMI
- hx of stenting 12/31 and 01/28
- Cardiac cath planned today
- continue ASA/Plavix/BB
- chest pain free
- trop negative
Hyperkalemia
- resolved
- continue oral K and keep K >4 and Mag >2
Mild transaminitis
- Could be secondary to venous congestion from CHF
- resolved on labs now
- no abd pain
Essential hypertension
Ovarian cancer status post hysterectomy
History of DVT/PE
DVT ppx: SC heparin
Code: Full
Anticipated Discharge: 24 - 48 hours
Subjective/Interval History
-
Date of Service: February 28, 2025
resting comfortably, no chest pain or sob
Objective Data
-
Labs:
Laboratory Results
02/28/25
03:59
WBC 9.3
Hgb 9.8 L
Hct 28.9 L
Plt Count 242
Sodium 139
Potassium 3.9
Chloride 105
Carbon Dioxide 25
BUN 17
Creatinine 0.7
Glucose 82
Calcium 9.1
Total Bilirubin 1.2
AST 31
ALT 32
Alkaline Phosphatase 316 H
Vital Signs:
Vital Signs
Temp Pulse Resp BP Pulse Ox
98 F 72 20 102/46 100
02/28/25 07:23 02/28/25 08:55 02/28/25 07:23 02/28/25 08:55 02/28/25 10:03
I&O
02/27/25 02/28/25 03/01/25
06:59 06:59 06:59
Intake Total 400 / 400 120 / 120
Balance 400 / 400 120 / 120
Physical Exam
-
General: No Apparent Distress
HEENT: Normocephalic and Atraumatic
Respiratory: Negative Wheezes
Cardiac: Regular Rhythm and S1/S2
GI: Soft and Nontender
Musculoskeletal: No Edema
Neuro: AO x 3
Hematologic / Lymphatic: No Lymphadenopathy
Psych: Calm
Data Reviewed
-
Total Time Spent with Patient (in minutes): 42
Labs: Labs Reviewed by me
--- NOTE | 2025-02-28 11:10 | PN.CDI ---
CDI
- -
CDI:
Physician Documentation Request
Admit Date: 02/26/25 22:05
Dear Doctor Maria A,
Clinical Indicators:
Height: 5 ft 5 in
Weight: 102 lbs 4.7 oz
BMI: 17.0
02/26 note, BMI assessment: Underweight (<18.5)
If possible, please provide an associated diagnosis related to the abnormal BMI(< or = to 19), such as:
Underweight
BMI is not significant
Other, please specify
Use of terms such as suspected, likely, concern for, or probable (associated with a specific diagnosis that is being evaluated, monitored, or treated as if it exists) are acceptable and can be coded in the inpatient setting, when documented at the
time of discharge.
Thank you,
HORTENSIA Blackburn RN
CDI Specialist
available via tiger text
Please use your independent medical judgment in providing your response.
--- NOTE | 2025-02-28 11:18 | PN.CDI ---
CDI
- -
CDI:
Physician Documentation Request
Admit Date: 02/26/25 22:05
Dear Doctor Maria A,
Clinical Indicators:
Height: 5 ft 5 in
Weight: 102 lbs 4.7 oz
BMI: 17.0
02/27 note, BMI assessment: Underweight (<18.5)
If possible, please provide an associated diagnosis related to the abnormal BMI(< or = to 19), such as:
Underweight
BMI is not significant
Other, please specify
Use of terms such as suspected, likely, concern for, or probable (associated with a specific diagnosis that is being evaluated, monitored, or treated as if it exists) are acceptable and can be coded in the inpatient setting, when documented at the
time of discharge.
Thank you,
HORTENSIA Blackburn RN
CDI Specialist
available via tiger text
Please use your independent medical judgment in providing your response.
--- NOTE | 2025-02-28 13:54 | PTCARENOTE ---
Pt bathed with CHG wipes. Report given to industrial laborer.
--- NOTE | 2025-02-28 15:32 | W.PN.CD ---
Today's Communication / Plan
-
- Dual chamber ICD today
Impression / Plan
-
NSVT, frequent runs:
-asymptomatic, mag and K+ fine today. K+ elevated on arrival.
-continue IV amiodarone, which requires intensive monitoring. On metoprolol.
-cardiac cath showed no culprit CAD
-Plan for ICD today - dual chamber due to severe bradycardia.
-Echo 02/27/25 Normal LV size with low normal systolic function. LVEF is 50-55% by visual estimation. No obvious wall motion abnormality. Compared to prior from December 17, 2024, on [id number] comparison LV
function is now low normal estimated at 50-55%, previously severely reduced at approximately 25-30%.
- With VT noted and no culprit lesion along with severe bradycardia and need for Metoprolol and Amiodarone, will proceed with dual chamber ICD.
- Pt is agreeable to proceed with ICD. Left handed but had old port on the right side. Discussed and will proceed to left sided device.
CAD, complex:
-multiple recent stents as below (12/2024 and 01/2025)
-continue ASA, plavix
-no CP
-trop unremarkable
Abnormal LFT's:
-does not drink ETOH anymore
-follow
ICM EF 25-30%:
-does not appear volume overloaded to assessment
-on Farxiga and metoprolol. GDMT has been limited by BP, but BP okay here so may be able to add on GDMT. Cath first.
Cardiac cath:
12/17/24: Right dominant circulation with a 75% lesion in the midportion of the small RCA, a densely calcified, 60% lesion in the proximal circumflex, a densely calcified, long, 70% lesion in the mid LAD, a densely calcified 90% lesion in the
proximal/mid LAD around the origin of the master septal arcade and a culprit, 95% lesion in the ostial/proximal LAD, status post successful IVUS guided intracoronary lithotripsy and PCI of the ostial/proximal/mid LAD lesions, with reduction in the
ostial/proximal and mid LAD lesions to 0% and the proximal/mid LAD lesion to 20%, restoring CARLA-3 flow.
2. Severely elevated filling pressures (LVEDP = 29 mmHg at 60.4 kg).
12/19/24: 1. Right dominant circulation with a known 75% lesion in the mid RCA, a 50% lesion in the ostium of the circumflex, and occlusive, densely calcified 60% proximal circumflex lesion status post successful intracoronary lithotripsy (shockwave
3.0 x 12 lithotripsy balloon) and IVUS guided PCI (Medtronic [place] 3.0 x 18 DENISE, postdilated with a 3.0 NC balloon throughout and a 3.25 NC balloon in the proximal margin) with reduction in stenosis to 0%, maintaining CARLA-3 flow, patent
stents in the proximal and mid LAD with a 50%, densely calcified, stented mid LAD lesion status post successful post hoc intracoronary lithotripsy (shockwave 3.0 x 12 lithotripsy balloon) and percutaneous transluminal angioplasty (3.25 x 12 NC
balloon to 18 tang) with reduction in stenosis to 20-30%, maintaining CARLA-3 flow.
2. Severely elevated filling pressures (LVEDP = 24 mmHg at 53.1 kg) with evidence of diastolic dysfunction (A wave to 35 mmHg).
01/06/25: 1. Right dominant circulation with prior PCI to the LAD and circumflex and residual RCA disease, now status post successful PCI of a 70% mid RCA lesion (Medtronic [place] 2.0 x 22 DENISE, postdilated with a 2.0 NC balloon) and an
underappreciated, densely calcified 80% ostial RCA lesion (Medtronic [place] 2.25 x 12 DENISE, postdilated with a 2.5 NC balloon to 20 tang) with reduction in stenosis of both stenoses to 0%, maintaining CARLA-3 flow.
2. Normal filling pressures (LVEDP = 6 mmHg at 61.0 kg).
Physical Exam
Vital Signs/Labs
Vital Signs
Temp Pulse Resp BP Pulse Ox
98.4 F 49 20 121/62 99
02/28/25 11:05 02/28/25 11:45 02/28/25 11:05 02/28/25 11:36 02/28/25 11:05
02/27/25 02/28/25 03/01/25
06:59 06:59 06:59
Actual Weight 48.8 kg 46.4 kg
02/28/25 03:59
02/28/25 03:59
Magnesium 2.0 mg/dl (1.6-2.3) 02/27/25 04:34
02/26/25
19:48
[id number]-[id number]-[id number] Pept 4140
LAB Results
02/26/25
18:34
Troponin I 0.013
Physical Exam
Constitutional: No acute distress and Comfortable
EENT: Anicteric and Moist mucous membranes
Cardiovascular: Rhythm & rate is regular, Pedal edema is absent and JVD pressure is normal
Respiratory: Respiratory effort normal, Lungs clear to auscul. and Crackles Absent
GI: Soft, Non tender and Normal bowel sounds
Neuro/Psych: Alert, Oriented and AO x 3
Other: Cardiac Device Site
Data Reviewed
-
Date of Service: February 28, 2025
Medical Decision Making: Reviewed Test Results, Test Interpretation and Review of Case with other Provider
EKG: Tracing Personally Visualized and interpreted
Echo: Report Reviewed by me
Labs: Labs Reviewed by me
Old Records: Reviewed
--- NOTE | 2025-02-28 15:50 | ITS.CL.ICD ---
Route Sales Delivery Drivers Supervisor - ICD
Implantable Cardioverter Defibrillator
Procedure Report:
Dual Chamber Implantable Cardioverter Defibrillator Placement:
Ms. Watkins is a very pleasant 70 years old woman with ischemic cardiomyopathy with myocardial scar and NYHA class II heart failure with fluctuating LVEF 35% to recovered LVEF to 55% with sustained ventricular tachycardia and severe bradycardia and
no significant myocardial ischemia noted on cardiac coronary angiogram is recommended a dual chamber ICD placement for secondary prevention
Indications: ventricular tachycardia � secondary prevention along with severe bradycardia.
Date of the Procedure: 02/28/2025
Pre-Operative Diagnosis: ventricular tachycardia
Post-Operative Diagnosis: ventricular tachycardia
Procedure Performed: DUAL CHAMBER IMPLANTABLE CARDIOVERTER DEFIBRILLATOR IMPLANTATION
Surgeon:
Dami Zendejas MD
Anesthesia:
See anesthesia records
Detailed Description of the Procedure:
The patient was identified using hospital identification and informed consent obtained for the procedure. The risks were explained including, but not limited to: Bleeding, infection, arrhythmia, stroke, vascular/cardiac/lung puncture, surgery,
pacemaker dependency/device malfunction. All questions were answered.
The patient was brought to the electrophysiology laboratory in stable condition in fasting state. Continuous electrocardiographic and hemodynamic monitoring was initiated. The initial rhythm was sinus bradycardia.
The procedure site was meticulously prepared with surgical scrub and allowed to dry with no pooling. Sterile draping was applied to cover the procedure site. The image intensifier was draped with sterile bag and positioned over the patient.
The left infra-clavicular region was prepped and draped in the usual sterile fashion. Local anesthesia was administered subcutaneously using 1% lidocaine / Bupivacaine. The left cephalic vein cut-down was performed with an incision at the
delto-pectoral groove, and vascular sheaths were introduced for lead access. These were advanced into the right ventricle and the right atrium. The right ventricular lead was secured in position with an active fixation technique at the apical septal
location. The RA lead was attached in the right atrial appendage with active fixation. There was excellent sensing, pacing, and impedance from the leads, with no diaphragmatic stimulation at 10 V output.�Bovie cautery, antibiotics, and fluoroscopy
were used.
The sheath was withdrawn, and the thresholds remained acceptable. The lead was secured in position at the venous entry site with 0-silk.
Patient is thin with no significant subcutanous fat or tissue and was a high risk for devise erosion and was decided to create a subpec pocket. A sub pectoralis muscle pocket was fashioned contiguous to the incision in the delto-pectoral groove.
The electrode terminals were connected to the pulse generator, which was placed into the pocket. The wound was irrigated thoroughly with antibiotic solution and closed in 3 layers using 2-0 VLOC sutures followed by 2 layers of 4-0 mnocryl sutures.
Steri-Strips and a bandage were applied externally.�
Procedure End:
The procedure was tolerated well. A bandage was applied to the incision area.
Estimated Blood loss:
5 cc
Fluoro time:
1.2min / 1.08mGy
Specimens Removed:
No cultures and no specimens were obtained. No intraoperative pathology was identified.
Urine output:
None
Packs / Drains/ Tubes:
None
Instrument / Sponge Count Correct:
Yes
Complications of the Procedure:
None
Condition of Patient at Time of Transfer:
Hemodynamically stable with no neurological or vascular compromise.
Device information:�
Generator: CORP80; Model: CFRT1P3; Serial # [id number]�
Atrial Lead: [id number]; Model: 5076-45; Serial # [id number]�
Measured data in the right atrium was sensing of 1.8 mV, impedance of 489 ohms and threshold of 1.2 V at 0.4ms.�
�
RV Lead: Medtronic; Model: 6935M-55; Serial # [id number]
Measured data in the RV lead was sensing of 6 mV, impedance of 475ohms and threshold of 0.75 V at 0.4ms�
PROGRAMMING PARAMETERS:�
Dane parameter settings were AAIR <=>DDDR 60-130 bpm. �
����������� Mode switch: On
����������� Paced AV delay: 130 ms
����������� Sensed AV delay: 100 ms
����������� Rate Adaptive A-V Interval: Off
Output parameters:
����������������������� Amplitude (V)������������� Pulse Width (ms)������� Sensitivity (mV)
����������� RA: ����� 3.5 ����������������� 0.4������������������ 0.3
����������� RV:������ 3.5������������������ 0.4������������������ 0.3
Tachy parameter settings:
����������� SVT discrimination: On
����������� AF/AFl: On
����������� SVT limit: 260 msec
����������� VT zone:
����������������������� Slow VT: 150- 188 bpm --> Monitor
����������������������� VT: /VF: > 188 bpm --> ATP while charging � Shock x 6
�����������
Summary:
Successful implantation of MRI compatible dual chamber Medtronic implantable Cardioverter Defibrillator.�
Results/Recommendations:
-Please follow up CXR�
1. Please provide patient with adequate pain control�
2. Please provide with Keflex 500mg TID for 2 days�
Instructions to be given to patient:�
- Please follow up with [facility] at [address] [place] [address] ([phone]) to get your wound checked within 14 days of your discharge.
- Do not soak incision site until after it is evaluated at cardiology clinic. OK to showers followed by dab dry the area. No baths or swimming until then. Sponge baths are OK.�
- Allow 'steri strips' to fall off on their own�
- Do not lift left elbow above shoulder, particularly with sudden jerking movements, for 1 month�
- Do not lift anything weighing more than 5 pounds with the left arm for 1 month�
- If you notice any fevers, shortness of breath, lightheadedness, chest pain, or worsening swelling in the wound site, please contact the arrhythmia clinic, contact your injection mold tooling technician, or present to the hospital for evaluation.�
Dami Zendejas MD
Electrophysiology
--- NOTE | 2025-02-28 16:06 | PTCARENOTE ---
Rec'd Pt from electrophysiology laboratory in bed; Pt AAO x 3; Denies pain; L upper chest pressure dressing intact; Pt reports mild dizziness/lightheadedness and states she has some 'shortness of breath'; Pt 100% SpO2 on RA; Lungs CTA; BP =
114/54; A-Paced rhythm on TELE; HR ~ 60; EKG done; Will continue to monitor and assess.
[2025-02-28] MEDS: LIPITOR 80 MG PO (17:56)
[2025-02-28] MEDS: ANCEF 5 IV (22:22)
[2025-03-01 03:48] VITALS: BP 120/57
[2025-03-01 04:00] VITALS: BMI 17.1
[2025-03-01 04:34] LABS: Hematocrit 31.2 % (37.0-47.0); Hemoglobin 10.2 g/dL (12.0-16.0); Mean Corp Hgb Conc. 32.7 g/dL (33.0-37.0); Mean Corpuscular Hgb 31.4 pg (27.0-31.0); Mean Platelet Volume 9.7 fL (7.4-10.4); Platelet Count 253 10^3/uL (130-400); Red Blood Cell Count 3.25 10^6/uL (4.20-5.40); Red Cell Dist. Width 15.4 % (11.5-14.5); White Blood Cell Count 10.5 10^3/uL (4.8-10.8)
[2025-03-01 05:00] LABS: ALT (SGPT) 25 U/L (0-35); AST (SGOT) 31 U/L (14-36); Albumin 3.3 g/dl (3.5-5.0); Alkaline Phosphatase 296 U/L (38-126); Blood Urea Nitrogen 20 mg/dl (7-17); Calcium 9.2 mg/dl (8.4-10.2); Carbon Dioxide 27 mmol/L (22-30); Chloride 104 mmol/L (98-107); Glucose 83 mg/dl (70-99); Magnesium 1.8 mg/dl (1.6-2.3); Sodium 140 mmol/L (135-145); Total Bilirubin 1.1 mg/dl (0.2-1.3); Total Protein 5.7 g/dl (6.3-8.2)
--- NOTE | 2025-03-01 05:01 | PTCARENOTE ---
Pt completed post ICD CXray. Apaced/NSR on monitor. Denies pain or SOB. Pt ambulates with x 1 assist. Call warren in reach
[2025-03-01 05:09] LABS: Estimated Creatinine Clearance 48 ml/min; eGFR > 60.00
[2025-03-01] MEDS: ANCEF 5 IV (05:52)
[2025-03-01 07:07] VITALS: BP 139/66
[2025-03-01] MEDS: PACERONE 400 MG PO (08:27)
[2025-03-01] MEDS: FARXIGA 10 MG PO (08:27)
[2025-03-01] MEDS: LOW STRENGTH ASPIRIN 81 MG PO (08:28)
[2025-03-01] MEDS: KCL 20 MEQ PO (08:28)
[2025-03-01] MEDS: PLAVIX 75 MG PO (08:29)
[2025-03-01] MEDS: LASIX 40 MG PO (08:29)
[2025-03-01] MEDS: HEPARIN 5000 UNITS SC (08:30)
--- NOTE | 2025-03-01 08:44 | W.PN.HOSP.TC ---
Today's Communication/Plan
-
dc to home today
Assessment / Plan
Assessment / Plan
Assessment:
NSVT and ectopy
- EKG with PVCs
- continue oral Amiodarone
- s/p ICD 02/28
- s/p [facility] 02/27: Coronary artery disease status post three-vessel PCI as described with patent stents and no obstructive disease. Mildly elevated LV filling pressure and no aortic stenosis
- Echo: Normal LV size with low normal systolic function. LVEF is 50-55% by visual estimation. No obvious wall motion abnormality. Normal right ventricular size and function. Mild mitral regurgitation. Estimated pulmonary artery pressure of 15-20
mmHg assuming a right atrial pressure of 3 mmHg. Compared to prior from December 17, 2024, on [id number]-[id number] comparison LV function is now low normal estimated at 50-55%, previously severely reduced at approximately 25-30%.
- s/p ICD 02/28
- 2 days of Keflex
- CBC cards follow up next week for device check
mild acute on chronic HFrEF (Ischemic cardiomyopathy)
- CXR without pulm edema
- s/p IV Lasix x 1; now back on oral Lasix and comfortable
- monitor I/Os, weights, lytes
- GDMT: Farxiga/BB. Consider additions as able (previously limited by BP)
CAD
Hx of NSTEMI
- hx of stenting 12/31 and 01/28
- Cardiac cath as above
- continue ASA/Plavix/BB
- chest pain free
- trop negative
Hyperkalemia
- resolved
- continue oral K and keep K >4 and Mag >2
Mild transaminitis
- Could be secondary to venous congestion from CHF
- resolved on labs now
- no abd pain
Essential hypertension
Ovarian cancer status post hysterectomy
History of DVT/PE
Underweight status
DVT ppx: SC heparin
Code: Full
More than 30 minutes spent in discharge including
Final examination of the patient
Summarizing hospital stay
Instructions for continuing care to all relevant caregivers
Preparation of discharge records, prescriptions, and referral forms
Total time spent (in minutes): 41
Anticipated Discharge: Today
Subjective/Interval History
-
Date of Service: March 01, 2025
s/p ICD
on keflex
no complaints
Objective Data
-
Labs:
Laboratory Results
03/01/25
03:55
WBC 10.5
Hgb 10.2 L
Hct 31.2 L
Plt Count 253
Sodium 140
Potassium 4.0
Chloride 104
Carbon Dioxide 27
BUN 20 H
Creatinine 0.8
Glucose 83
Calcium 9.2
Total Bilirubin 1.1
AST 31
ALT 25
Alkaline Phosphatase 296 H
Vital Signs:
Vital Signs
Temp Pulse Resp BP Pulse Ox
98.5 F 62 16 120/57 96
03/01/25 07:06 03/01/25 04:45 03/01/25 07:06 03/01/25 03:48 03/01/25 07:06
I&O
02/28/25 03/01/25 03/02/25
06:59 06:59 06:59
Intake Total 400 / 400 120 / 120
Balance 400 / 400 120 / 120
Physical Exam
-
General: No Apparent Distress
HEENT: Normocephalic and Atraumatic
Respiratory: Negative Wheezes
Cardiac: Regular Rhythm and S1/S2
GI: Soft and Nontender
Neuro: AO x 3
Hematologic / Lymphatic: No Lymphadenopathy
Psych: Calm
Data Reviewed
-
Total Time Spent with Patient (in minutes): 41
Labs: Labs Reviewed by me
--- NOTE | 2025-03-01 09:11 | W.PN.CD ---
Addendum entered and electronically signed by Hal Early MD 03/01/25 13:08:
I saw and examined the patient.
The OPTICAL DESIGN ENGINEER's note was reviewed and I agree with the note.
Comment: Amio 200 mg daily has scheduled f/u
Original Note:
Today's Communication / Plan
-
L pectoral site stable
Reduce amiodarone to 200mg daily
GDMT limited by BP
f/u as scheduled in office.
Impression / Plan
-
NSVT, frequent runs:
-s/p ICD
-on amiodarone , decrease to 200mg daily.
-Echo 02/27/25 Normal LV size with low normal systolic function. LVEF is 50-55% by visual estimation. No obvious wall motion abnormality.
Compared to prior from December 17, 2024, on yyfo-uw-kcla comparison LV function is now low normal estimated at 50-55%, previously severely reduced at
approximate 25-30%.
CAD, complex:
-multiple recent stents as below (12/2024 and 01/2025)
-continue ASA, plavix
-no CP
-trop unremarkable
Abnormal LFT's:
-does not drink ETOH anymore
-improved
ICM EF 25-30%:
-on Farxiga and metoprolol. GDMT has been limited by
Cardiac cath:
12/17/24: Right dominant circulation with a 75% lesion in the midportion of the small RCA, a densely calcified, 60% lesion in the proximal circumflex, a densely calcified, long, 70% lesion in the mid LAD, a densely calcified 90% lesion in the
proximal/mid LAD around the origin of the master septal arcade and a culprit, 95% lesion in the ostial/proximal LAD, status post successful IVUS guided intracoronary lithotripsy and PCI of the ostial/proximal/mid LAD lesions, with reduction in the
ostial/proximal and mid LAD lesions to 0% and the proximal/mid LAD lesion to 20%, restoring CARLA-3 flow.
2. Severely elevated filling pressures (LVEDP = 29 mmHg at 60.4 kg).
12/19/24: 1. Right dominant circulation with a known 75% lesion in the mid RCA, a 50% lesion in the ostium of the circumflex, and occlusive, densely calcified 60% proximal circumflex lesion status post successful intracoronary lithotripsy (shockwave
3.0 x 12 lithotripsy balloon) and IVUS guided PCI (Medtronic [place] 3.0 x 18 DENISE, postdilated with a 3.0 NC balloon throughout and a 3.25 NC balloon in the proximal margin) with reduction in stenosis to 0%, maintaining CARLA-3 flow, patent
stents in the proximal and mid LAD with a 50%, densely calcified, stented mid LAD lesion status post successful post hoc intracoronary lithotripsy (shockwave 3.0 x 12 lithotripsy balloon) and percutaneous transluminal angioplasty (3.25 x 12 NC
balloon to 18 tang) with reduction in stenosis to 20-30%, maintaining CARLA-3 flow.
2. Severely elevated filling pressures (LVEDP = 24 mmHg at 53.1 kg) with evidence of diastolic dysfunction (A wave to 35 mmHg).
01/06/25: 1. Right dominant circulation with prior PCI to the LAD and circumflex and residual RCA disease, now status post successful PCI of a 70% mid RCA lesion (Medtronic [place] 2.0 x 22 DENISE, postdilated with a 2.0 NC balloon) and an
underappreciated, densely calcified 80% ostial RCA lesion (Medtronic [place] 2.25 x 12 DENISE, postdilated with a 2.5 NC balloon to 20 tang) with reduction in stenosis of both stenoses to 0%, maintaining CARLA-3 flow.
2. Normal filling pressures (LVEDP = 6 mmHg at 61.0 kg).
Physical Exam
Vital Signs/Labs
Vital Signs
Temp Pulse Resp BP Pulse Ox
98.5 F 62 16 120/57 96
03/01/25 07:06 03/01/25 04:45 03/01/25 07:06 03/01/25 03:48 03/01/25 07:06
02/28/25 03/01/25 03/02/25
06:59 06:59 06:59
Actual Weight 46.4 kg 46.6 kg
03/01/25 03:55
03/01/25 03:55
Magnesium 1.8 mg/dl (1.6-2.3) 03/01/25 03:55
02/26/25
19:48
Vvx-B-Cmuoeccngux Pept 4140
LAB Results
02/26/25
18:34
Troponin I 0.013
Physical Exam
Cardiovascular: Rhythm & rate is regular and Pedal edema is absent
Respiratory: Respiratory effort normal and Lungs clear to auscul.
Neuro/Psych: AO x 3
Other: Cardiac Device Site (L pectoral incision no hematoma, dressing intact. )
Data Reviewed
-
Date of Service: March 01, 2025
EKG: Tracing Personally Visualized and interpreted (APVS 60 bpm ) and Other (Tele: NSR, AP , brief SVT )
Labs: Labs Reviewed by me
[2025-03-01] MEDS: KEFLEX 500 MG PO (09:12)
--- NOTE | 2025-03-01 11:59 | W.DS.TRANS ---
DC Summary - Nurse Specialist
-
Discharge Instructions:
Sleep Apnea Risk Low
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
02/28
Diet Low Cholesterol,2 Gram Sodium
Driving Restrictions No driving for 1 week
Bathing Restrictions OK to Shower
Specialty Instructions Weigh Daily
Instructions: *CBC Heart Failure Instructions
Stand-Alone Forms: DC Instructions- Cath/EP Lab
Changes to Home Medications: Yes
Discharge Medications:
DC Medications w/original date entered in G-mode
aspirin 81 mg chewable tablet 81 mg PO DAILY #1 tab 12/17/24
atorvastatin 80 mg tablet 80 mg PO QPM #90 tabs 12/17/24
dapagliflozin propanediol 10 mg tablet 10 mg PO DAILY #90 tabs 12/17/24
furosemide 40 mg tablet 40 mg PO DAILY #90 tabs 12/20/24
clopidogrel 75 mg tablet (Plavix) 75 mg PO DAILY Blood Clot Prevention/Tx 02/26/25
potassium chloride 20 mEq tablet,extended release(part/cryst) 20 meq PO DAILY Supplement 02/26/25
amiodarone 200 mg tablet 200 mg PO DAILY #30 tabs 03/01/25
cephalexin 500 mg capsule 500 mg PO TID #66 caps 03/01/25
Home Medication Changes
BB stopped, Amio started
Pending Results: No
Total time spent discharging patient (in min): 41
[2025-03-01 12:12] VITALS: BP 132/109
[2025-03-01 12:14] VITALS: BP 149/71
--- NOTE | 2025-03-01 13:08 | PTCARENOTE ---
Discharge instructions reviewed with Pt and her significant other. They expressed understanding. Pt's L chest wall aquacell dressing remains D+I. R radial site BRITNEY clean and dry. + radial pulse.
== END 2025-03-01 13:21 | disposition home or self-care (01) | DRG 275 ==
LOC: IVU 22:05
PROVIDERS: Emergency Medicine; Internal Medicine Cardiovascular Disease; Student in an Organized Health Care Education/Training Program; ADMITTING PHYSICIAN Hospitalist; ATTENDING PHYSICIAN Internal Medicine; CONSULT PHYSICIAN Internal Medicine Cardiovascular Disease; EMERGENCY PHYSICIAN Emergency Medicine; FAMILY PHYSICIAN Family Medicine
PROC: B211YZZ Fluoroscopy of Multiple Coronary Arteries using Other Contrast (ICD-10-PCS; 2025-02-27)
PROC: 4A023N7 Measurement of Cardiac Sampling and Pressure, Left Heart, Percutaneous Approach (ICD-10-PCS; 2025-02-27)
PROC: 02H63KZ Insertion of Defibrillator Lead into Right Atrium, Percutaneous Approach (ICD-10-PCS; 2025-02-28)
PROC: 02HK3KZ Insertion of Defibrillator Lead into Right Ventricle, Percutaneous Approach (ICD-10-PCS; 2025-02-28)
PROC: 0JH608Z Insertion of Defibrillator Generator into Chest Subcutaneous Tissue and Fascia, Open Approach (ICD-10-PCS; 2025-02-28)
DX: I47.29 Other ventricular tachycardia (principal); I50.23 Acute on chronic systolic (congestive) heart failure; Z68.1 Body mass index [BMI] 19.9 or less, adult; I11.0 Hypertensive heart disease with heart failure; I25.5 Ischemic cardiomyopathy; I25.10 Atherosclerotic heart disease of native coronary artery without angina pectoris; E78.00 Pure hypercholesterolemia, unspecified; E87.5 Hyperkalemia; I49.3 Ventricular premature depolarization; I25.2 Old myocardial infarction; R63.6 Underweight; R74.01 Elevation of levels of liver transaminase levels; Z90.710 Acquired absence of both cervix and uterus; Z88.0 Allergy status to penicillin; Z87.891 Personal history of nicotine dependence; Z86.718 Personal history of other venous thrombosis and embolism; Z86.711 Personal history of pulmonary embolism; Z85.43 Personal history of malignant neoplasm of ovary; Z82.49 Family history of ischemic heart disease and other diseases of the circulatory system; Z79.899 Other long term (current) drug therapy; Z95.5 Presence of coronary angioplasty implant and graft; Z79.02 Long term (current) use of antithrombotics/antiplatelets; Z79.82 Long term (current) use of aspirin
CPT/HCPCS: 33249; 71045; 80053; 83735; 83880; 84100; 84132; 84484; 85025; 85027; 93005; 93306; 93458; 96365; 96366; 96375; 99152; 99153; 99291; C1721; C1769; C1777; C1892; C1894; C1898; Q9967

== ENCOUNTER 2025-04-04 17:30 | Outpatient (RCR) | payer OTHER, SELFPAY | END 2025-04-04 23:59 | disposition home or self-care (01) | LOC: CRHB 17:30 | PROVIDERS: ATTENDING PHYSICIAN Internal Medicine Cardiovascular Disease; FAMILY PHYSICIAN Family Medicine | DX: I21.4 Non-ST elevation (NSTEMI) myocardial infarction (principal); I25.10 Atherosclerotic heart disease of native coronary artery without angina pectoris; Z95.5 Presence of coronary angioplasty implant and graft; I25.2 Old myocardial infarction | CPT/HCPCS: 93797; 93798; G0422; G0423 ==

== ENCOUNTER 2025-04-16 17:22 | Outpatient (RCR) | payer OTHER, SELFPAY | END 2025-04-21 12:24 | disposition home or self-care (01) | LOC: CRHB 17:22 | PROVIDERS: ATTENDING PHYSICIAN Internal Medicine Cardiovascular Disease; FAMILY PHYSICIAN Family Medicine | DX: I25.10 Atherosclerotic heart disease of native coronary artery without angina pectoris (principal); I25.2 Old myocardial infarction; Z95.5 Presence of coronary angioplasty implant and graft; I10 Essential (primary) hypertension; E78.5 Hyperlipidemia, unspecified; Z95.810 Presence of automatic (implantable) cardiac defibrillator | CPT/HCPCS: 93797; 93798; G0422; G0423 ==